=== PATIENT | male | born 1970 | race Caucasian/White ===

== ENCOUNTER 2017-02-24 10:04 | Inpatient (IN) ==
[2017-02-24] MEDS ORDERED: 0.9 % Sodium Chloride 1,000 ML IVC ONE (10:11)
--- NOTE | 2017-02-24 10:16 | Emergency Department Note ---
Disposition Clinical Impression: Cirrhosis of liver Qualifiers: Hepatic cirrhosis type: unspecified biliary cirrhosis Qualified Code(s): K74.5 - Biliary cirrhosis, unspecified Syncope Qualifiers: Syncope type: unspecified Qualified Code(s): R55 - Syncope and collapse Altered mental status Qualifiers: Altered mental status type: delirium Qualified Code(s): R41.0 - Disorientation , unspecified Disposition: Admitted As Inpatient Condition: Fair General Adult HPI - General Chief complaint: ED Fall Stated complaint: fall Time Seen by Provider: 02/24/17 10:06 Nursing Notes Reviewed: Yes Vital Signs Reviewed: Yes - History of Present Illness HPI Narrative: Chief complaint is altered mental status. History this is a 47-year-old gentleman who was at home. Has a history of cirrhosis and altered mental status with hyperammonemia. Medics were the only one by mouth to give us any history this family was poor historian and patient' s altered. Give history. They also said he was found down on the ground by family. He was incontinent of urine and stool. Does have a Coleman catheter in but that is leaking. He was nauseous so they gave him Zofran and now he is doing better with that. He denies any pain at this time. He is agitated. He is he is alert to person he knows is in the hospital he does know the time and date. Past medical history reviewed and is limited list is reviewed and is limited and allergies he says only to milk products. - Related Data Home Medications Medication Instructions Recorded Confirmed Gabapentin [Neurontin] 100 mg PO TID 12/22/15 02/24/17 Potassium Chloride [K-Tab ER] 20 meq PO DAILY 12/22/15 02/24/17 TraZODone 50 mg PO HS PRN 12/22/15 02/24/17 Ergocalciferol (VITAMIN D2) 50,000 units PO QWEEK 04/17/16 02/24/17 [Vitamin D2 (50,000 UNIT)] Lactulose [Enulose] 45 ml PO BID 04/17/16 02/24/17 Omeprazole [PriLOSEC] 20 mg PO BID 04/17/16 02/24/17 Tizanidine HCl [Zanaflex] 2 mg PO HS PRN 04/17/16 02/24/17 Eplerenone [Inspra] 50 mg PO BID 02/24/17 02/24/17 Escitalopram [Lexapro] 10 mg PO DAILY 02/24/17 02/24/17 Furosemide [Lasix] 40 mg PO DAILY 02/24/17 02/24/17 Promethazine [Phenergan] 25 mg PO Q6HR PRN 02/24/17 02/24/17 Previous Rx's Medication Instructions Recorded Bumetanide [Bumex] 1 mg PO DAILY #7 tablet 01/04/17 Allergies Allergy/AdvReac Type Severity Reaction Status Date / Time milk Allergy Swelling Verified 01/09/17 20:32 of Lip/Tongue/Throat Milk Containing Products Allergy Swelling Verified 01/09/17 20:32 of Lip/Tongue/Throat Review of Systems: His systems are positive for altered mental status. Nausea resolved this is limited due to the patient's altered mental status. Limitations: ROS unobtainable due to patients medical condition Past Medical History - Past Medical History Medical history: Reports: cirrhosis, GERD, liver disease, renal disease, other Surgical history: Reports: no surgical history Psychiatric history: Reports: no psych history - Social History Smoking Status: Never smoker Smokeless Tobacco Status: Yes (SMOKELESS TOBACCO) Alcohol use: Reports: none Drug use: Reports: none Physical Exam Gen. patient is disheveled, smells of feces and urine. Is nontoxic in appearance however. He is alert to person and he notices in the hospital but not to time Temperature is 99.2, pulse is 111, respirations 20, BP 206/100, pulse ox is 97% . He was 132 kg. HEENT he has no scleral icterus. Mucous membranes are dry, neck is supple no nodes no signs of trauma TMs nares are negative. Cardiovascular tachycardic but regular without rubs or JVD lungs are clear to auscultation bilaterally with good aeration abdomen is soft nondistended. Bowel sounds no masses. He does have liquid stool in his pants. No signs of blood. He does have ascites. Extremities are present 4 no signs of trauma. He has some edema in his lower extremities. No signs of cellulitis. Dermatologic he is not jaundiced. He has no abnormal bruising. No acute rashes or petechiae. Neurologic is very limited GCS is 14. Moves all extremities. Noncooperative for focal neuro exam. Course Vital Signs Temperature 99.2 F 02/24/17 10:06 Pulse Rate 111 02/24/17 10:06 Respiratory Rate 20 02/24/17 10:06 Blood Pressure 206/100 02/24/17 10:06 O2 Sat by Pulse Oximetry 97 02/24/17 10:06 Temperature 99.2 F 02/24/17 10:06 Pulse Rate 106 02/24/17 12:29 Respiratory Rate 20 02/24/17 13:04 Blood Pressure 194/90 02/24/17 13:04 O2 Sat by Pulse Oximetry 97 02/24/17 12:29 Oxygen Delivery Oxygen Delivery Room Air Medical Decision Making - MDM Narrative Medical decision making narrative: Injury a CT of his head to rule out any intracranial abnormality. Check cultures and lab work. Rule out sepsis hyperammonemia and other causes. He will need admission. Also see professor of social work can get in touch with family and determine what health care needs are needed at home. 1017 hrs.: Patient had an EKG performed which shows a sinus tachycardia, the rate is 104, irregular EKG due to movement, QRS is 104 QTC is 4:30, nonspecific changes in ST segments but nothing that appears to be acute ischemia. Compared this to an EKG he had done in April of last year shows no changes except for rate. 1100 hrs.: Patient's labs are coming back and are significant with his elevation of the CK probably from lying on the floor. However his BUN/ creatinine is not elevated. He does have an elevated troponin but denies any chest pain. His LFTs are elevated consistent with his liver disease. Waiting on a CT. We will give him a dose of aspirin also. Hydration for his elevated CK. Given a tray given a dose of lactulose here. And then admission. Chest X-Ray 02/24/17 10:08 IMPRESSION: Mild pulmonary vascular congestion without overt pulmonary edema. D/ / 02/24/2017 10:33:32 Magdy Pinon MD / [facility] Interpreting Provider: Magdy Pinon MD Head CT 02/24/17 10:08 IMPRESSION: Motion artifact degrades exam. No definite acute intracranial abnormality. D/ / Richard Clark MD / Richard Clark MD Interpreting Provider: Richard Clark MD 1146 hrs. CTs back and negative. Regarding and bring him into the hospital impression is acute mental status change, history of this of cirrhosis uncertain etiology. Elevated CK from fall. 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 He does walk with a walker now. Lives alone and no one is really others take care of him so we will involve professor of social work without also. They said this is the worst they have actually seen him. Patient's critical care time is excluding any separately billable procedures is 40 minutes. 1210 hrs.: Spoke with the hospitalist they have excepted we will start him on Zosyn also I will order a second lactate on him and second bolus of fluids. I thought he should probably go to [address] [place] [address] hospitalist agrees. We know that he does have UTI that could be chronic. But we will rule out sepsis also. He has he does have Sirs criteria. 1214 hrs.: Patient has second EKG for comparison shows a sinus tachycardia, rate 107, QRS is 97, QT 404, no signs of ischemia still has the nonspecific T- wave changes compared that to his old EKGs. - Lab Data Result diagrams: 02/24/17 10:29 02/24/17 10:29 Lab Results 02/24/17 02/24/17 02/24/17 Range/Units 10:29 10:29 10:29 WBC 5.8 (4.3-11.1) K/mcL RBC 4.47 (4.19-5.50) M/mcL Hgb 12.8 L (12.9-16.9) g/dL Hct 37.5 (37.5-50.1) % MCV 83.9 (83.0-100.0) fL MCH 28.6 (28.0-33.3) pg MCHC 34.1 (31.6-35.5) g/dL RDW 14.6 H (11.5-14.5) % Plt Count 52 L (140-400) K/mcL MPV 11.0 (9.4-12.4) fL Immature Gran % 0.3 (0-4) % Seg Neutrophils % 88.8 % Lymphocytes % 5.0 % Monocytes % 5.5 % Eosinophils % 0.2 % Basophils % 0.2 % Neutrophils # 5.2 (1.6-8.9) K/mcL Lymphocytes # 0.3 L (0.6-4.6) K/mcL Monocytes # 0.3 (0.0-1.3) K/mcL Eosinophils # 0.0 (0.0-0.6) K/mcL Basophils # 0.0 (0.0-0.2) K/mcL PT 14.5 H (9.4-12.1) Seconds INR 1.3 APTT 29.5 (26.0-36.0) Seconds Sodium 144 (136-145) mEq/L Potassium 4.1 (3.5-4.5) mEq/L Chloride 109 (98-109) mEq/L Carbon Dioxide 24 (19-29) mEq/L BUN 14 (8-26) mg/dL Creatinine 0.89 (0.72-1.25) mg/dL Est GFR ( Amer) > 60 (> 60) Est GFR (Non-Af Amer) > 60 (> 60) BUN/Creatinine Ratio 16 (6-26) Glucose 135 H (70-99) mg/dL Calculated Osmolality 301 H (280-300) Lactic Acid (0.5-2.2) mmol/L Calcium 9.3 (8.6-10.8) mg/dL Phosphorus (2.3-4.7) mg/dL Magnesium (1.6-2.6) mg/dL Total Bilirubin 2.3 H (0.2-1.2) mg/dL AST 57 H (5-34) Units/L ALT 27 (0-55) Units/L Alkaline Phosphatase 89 (38-126) Units/L Ammonia (18-72) mcmol/L Creatine Kinase (30-200) Units/L Troponin I (0-0.03) ng/mL B-Natriuretic Peptide (0-100) pg/mL Serum Total Protein 7.5 (6.0-8.3) g/dL Albumin 3.7 (3.5-5.0) g/dL Globulin 3.8 H (2.4-3.5) g/dL Albumin/Globulin Ratio 1.0 L (1.1-2.2) Urine Color (Yellow) Urine Clarity (Clear) Urine pH (5.0-8.0) pH Units Ur Specific Wanda (1.010-1.025) Urine Protein (Neg-Trace) mg/dL Urine Glucose (UA) (Normal) mg/dL Urine Ketones (Negative) mg/dL Urine Blood (Negative) Urine Nitrite (Negative) Urine Bilirubin (Negative) Urine Urobilinogen (Normal) mg/dL Ur Leukocyte Esterase (Negative) Urine Microscopic RBC (0-3) per hpf Urine Microscopic WBC (0-3) per hpf Ur Squamous Epith Cells (None-Few) per lpf Urine Bacteria (None-Few) per hpf Hyaline Casts (None-Few) per lpf Ur Culture Indicated? (NO) Acetaminophen < 1.0 L (10-30) mcg/mL Ethyl Alcohol < 10 (0-10) mg/dL 02/24/17 02/24/17 02/24/17 Range/Units 10:29 10:29 10:29 WBC (4.3-11.1) K/mcL RBC (4.19-5.50) M/mcL Hgb (12.9-16.9) g/dL Hct (37.5-50.1) % MCV (83.0-100.0) fL MCH (28.0-33.3) pg MCHC (31.6-35.5) g/dL RDW (11.5-14.5) % Plt Count (140-400) K/mcL MPV (9.4-12.4) fL Immature Gran % (0-4) % Seg Neutrophils % % Lymphocytes % % Monocytes % % Eosinophils % % Basophils % % Neutrophils # (1.6-8.9) K/mcL Lymphocytes # (0.6-4.6) K/mcL Monocytes # (0.0-1.3) K/mcL Eosinophils # (0.0-0.6) K/mcL Basophils # (0.0-0.2) K/mcL PT (9.4-12.1) Seconds INR APTT (26.0-36.0) Seconds Sodium (136-145) mEq/L Potassium (3.5-4.5) mEq/L Chloride (98-109) mEq/L Carbon Dioxide (19-29) mEq/L BUN (8-26) mg/dL Creatinine (0.72-1.25) mg/dL Est GFR ( Amer) (> 60) Est GFR (Non-Af Amer) (> 60) BUN/Creatinine Ratio (6-26) Glucose (70-99) mg/dL Calculated Osmolality (280-300) Lactic Acid 3.5 H (0.5-2.2) mmol/L Calcium (8.6-10.8) mg/dL Phosphorus (2.3-4.7) mg/dL Magnesium (1.6-2.6) mg/dL Total Bilirubin (0.2-1.2) mg/dL AST (5-34) Units/L ALT (0-55) Units/L Alkaline Phosphatase (38-126) Units/L Ammonia 75 H (18-72) mcmol/L Creatine Kinase (30-200) Units/L Troponin I (0-0.03) ng/mL B-Natriuretic Peptide 132 H (0-100) pg/mL Serum Total Protein (6.0-8.3) g/dL Albumin (3.5-5.0) g/dL Globulin (2.4-3.5) g/dL Albumin/Globulin Ratio (1.1-2.2) Urine Color (Yellow) Urine Clarity (Clear) Urine pH (5.0-8.0) pH Units Ur Specific Wanda (1.010-1.025) Urine Protein (Neg-Trace) mg/dL Urine Glucose (UA) (Normal) mg/dL Urine Ketones (Negative) mg/dL Urine Blood (Negative) Urine Nitrite (Negative) Urine Bilirubin (Negative) Urine Urobilinogen (Normal) mg/dL Ur Leukocyte Esterase (Negative) Urine Microscopic RBC (0-3) per hpf Urine Microscopic WBC (0-3) per hpf Ur Squamous Epith Cells (None-Few) per lpf Urine Bacteria (None-Few) per hpf Hyaline Casts (None-Few) per lpf Ur Culture Indicated? (NO) Acetaminophen (10-30) mcg/mL Ethyl Alcohol (0-10) mg/dL 02/24/17 02/24/17 02/24/17 Range/Units 10:29 10:29 11:40 WBC (4.3-11.1) K/mcL RBC (4.19-5.50) M/mcL Hgb (12.9-16.9) g/dL Hct (37.5-50.1) % MCV (83.0-100.0) fL MCH (28.0-33.3) pg MCHC (31.6-35.5) g/dL RDW (11.5-14.5) % Plt Count (140-400) K/mcL MPV (9.4-12.4) fL Immature Gran % (0-4) % Seg Neutrophils % % Lymphocytes % % Monocytes % % Eosinophils % % Basophils % % Neutrophils # (1.6-8.9) K/mcL Lymphocytes # (0.6-4.6) K/mcL Monocytes # (0.0-1.3) K/mcL Eosinophils # (0.0-0.6) K/mcL Basophils # (0.0-0.2) K/mcL PT (9.4-12.1) Seconds INR APTT (26.0-36.0) Seconds Sodium (136-145) mEq/L Potassium (3.5-4.5) mEq/L Chloride (98-109) mEq/L Carbon Dioxide (19-29) mEq/L BUN (8-26) mg/dL Creatinine (0.72-1.25) mg/dL Est GFR ( Amer) (> 60) Est GFR (Non-Af Amer) (> 60) BUN/Creatinine Ratio (6-26) Glucose (70-99) mg/dL Calculated Osmolality (280-300) Lactic Acid (0.5-2.2) mmol/L Calcium (8.6-10.8) mg/dL Phosphorus (2.3-4.7) mg/dL Magnesium (1.6-2.6) mg/dL Total Bilirubin (0.2-1.2) mg/dL AST (5-34) Units/L ALT (0-55) Units/L Alkaline Phosphatase (38-126) Units/L Ammonia (18-72) mcmol/L Creatine Kinase 1589 H (30-200) Units/L Troponin I 0.09 H* (0-0.03) ng/mL B-Natriuretic Peptide (0-100) pg/mL Serum Total Protein (6.0-8.3) g/dL Albumin (3.5-5.0) g/dL Globulin (2.4-3.5) g/dL Albumin/Globulin Ratio (1.1-2.2) Urine Color Yellow (Yellow) Urine Clarity Cloudy A (Clear) Urine pH 5.5 (5.0-8.0) pH Units Ur Specific Wanda 1.023 (1.010-1.025) Urine Protein 30 H (Neg-Trace) mg/dL Urine Glucose (UA) Normal (Normal) mg/dL Urine Ketones Negative (Negative) mg/dL Urine Blood Large H (Negative) Urine Nitrite Positive A (Negative) Urine Bilirubin Negative (Negative) Urine Urobilinogen Normal (Normal) mg/dL Ur Leukocyte Esterase Small H (Negative) Urine Microscopic RBC TNTC H (0-3) per hpf Urine Microscopic WBC 15-30 H (0-3) per hpf Ur Squamous Epith Cells Few (None-Few) per lpf Urine Bacteria Moderate H (None-Few) per hpf Hyaline Casts None Seen (None-Few) per lpf Ur Culture Indicated? YES A (NO) Acetaminophen (10-30) mcg/mL Ethyl Alcohol (0-10) mg/dL 02/24/17 02/24/17 Range/Units 12:41 12:41 WBC (4.3-11.1) K/mcL RBC (4.19-5.50) M/mcL Hgb (12.9-16.9) g/dL Hct (37.5-50.1) % MCV (83.0-100.0) fL MCH (28.0-33.3) pg MCHC (31.6-35.5) g/dL RDW (11.5-14.5) % Plt Count (140-400) K/mcL MPV (9.4-12.4) fL Immature Gran % (0-4) % Seg Neutrophils % % Lymphocytes % % Monocytes % % Eosinophils % % Basophils % % Neutrophils # (1.6-8.9) K/mcL Lymphocytes # (0.6-4.6) K/mcL Monocytes # (0.0-1.3) K/mcL Eosinophils # (0.0-0.6) K/mcL Basophils # (0.0-0.2) K/mcL PT (9.4-12.1) Seconds INR APTT (26.0-36.0) Seconds Sodium (136-145) mEq/L Potassium (3.5-4.5) mEq/L Chloride (98-109) mEq/L Carbon Dioxide (19-29) mEq/L BUN (8-26) mg/dL Creatinine (0.72-1.25) mg/dL Est GFR ( Amer) (> 60) Est GFR (Non-Af Amer) (> 60) BUN/Creatinine Ratio (6-26) Glucose (70-99) mg/dL Calculated Osmolality (280-300) Lactic Acid 3.4 H (0.5-2.2) mmol/L Calcium (8.6-10.8) mg/dL Phosphorus 3.6 (2.3-4.7) mg/dL Magnesium 1.5 L (1.6-2.6) mg/dL Total Bilirubin (0.2-1.2) mg/dL AST (5-34) Units/L ALT (0-55) Units/L Alkaline Phosphatase (38-126) Units/L Ammonia (18-72) mcmol/L Creatine Kinase (30-200) Units/L Troponin I (0-0.03) ng/mL B-Natriuretic Peptide (0-100) pg/mL Serum Total Protein (6.0-8.3) g/dL Albumin (3.5-5.0) g/dL Globulin (2.4-3.5) g/dL Albumin/Globulin Ratio (1.1-2.2) Urine Color (Yellow) Urine Clarity (Clear) Urine pH (5.0-8.0) pH Units Ur Specific Wanda (1.010-1.025) Urine Protein (Neg-Trace) mg/dL Urine Glucose (UA) (Normal) mg/dL Urine Ketones (Negative) mg/dL Urine Blood (Negative) Urine Nitrite (Negative) Urine Bilirubin (Negative) Urine Urobilinogen (Normal) mg/dL Ur Leukocyte Esterase (Negative) Urine Microscopic RBC (0-3) per hpf Urine Microscopic WBC (0-3) per hpf Ur Squamous Epith Cells (None-Few) per lpf Urine Bacteria (None-Few) per hpf Hyaline Casts (None-Few) per lpf Ur Culture Indicated? (NO) Acetaminophen (10-30) mcg/mL Ethyl Alcohol (0-10) mg/dL
[2017-02-24] MEDS ORDERED: Ondansetron 4 MG/2 ML VIAL IVP ONE (10:31)
[2017-02-24] MEDS ORDERED: *HR* LORazepam 2 MG/ML VIAL IVP ONE (10:31)
[2017-02-24 10:40] LABS: Basophils % 0.2 %; Eosinophils % 0.2 %; Hematocrit 37.5 % (37.5-50.1); Hemoglobin 12.8 g/dL (12.9-16.9); Immature Granulocytes % 0.3 % (0-4); Lymphocytes # 0.3 K/mcL (0.6-4.6); Mean Corpuscular HGB Conc 34.1 g/dL (31.6-35.5); Mean Corpuscular Hemoglobin 28.6 pg (28.0-33.3); Mean Corpuscular Volume 83.9 fL (83.0-100.0); Monocytes # 0.3 K/mcL (0.0-1.3); Monocytes % 5.5 %; Neutrophils # 5.2 K/mcL (1.6-8.9); Platelet Count 52 K/mcL (140-400); Red Blood Count 4.47 M/mcL (4.19-5.50); Red Cell Distribution Width 14.6 % (11.5-14.5); Segmented Neutrophils % 88.8 %
[2017-02-24 10:45] LABS: INR 1.3; Prothrombin Time 14.5 Seconds (9.4-12.1)
[2017-02-24 10:48] LABS: Activated Partial Thrombo Time 29.5 Seconds (26.0-36.0)
[2017-02-24 10:57] LABS: Alanine Aminotransferase 27 Units/L (0-55); Albumin 3.7 g/dL (3.5-5.0); Alkaline Phosphatase 89 Units/L (38-126); Aspartate Amino Transferase 57 Units/L (5-34); BUN/Creatinine Ratio 16 (6-26); Bilirubin,Total 2.3 mg/dL (0.2-1.2); Blood Urea Nitrogen 14 mg/dL (8-26); Calcium 9.3 mg/dL (8.6-10.8); Carbon Dioxide 24 mEq/L (19-29); Chloride 109 mEq/L (98-109); Globulin 3.8 g/dL (2.4-3.5); Glucose 135 mg/dL (70-99); Osmolality,Calculated 301 (280-300); Potassium 4.1 mEq/L (3.5-4.5); Sodium 144 mEq/L (136-145); Total Protein 7.5 g/dL (6.0-8.3); eGFR For African Americans > 60 (> 60); eGFR For Non-African Americans > 60 (> 60)
[2017-02-24 10:59] LABS: Acetaminophen < 1.0 mcg/mL (10-30); Ethanol < 10 mg/dL (0-10)
[2017-02-24] MEDS ORDERED: Aspirin 81 MG TAB.CHEW PO STA (11:06)
[2017-02-24] MEDS ORDERED: Lactulose Oral Soln 20 GM/30 ML UDC PO ONE (11:08)
[2017-02-24 11:49] LABS: Bilirubin,Urine Negative (Negative); Blood,Urine Large (Negative); Clarity,Urine Cloudy (Clear); Color,Urine Yellow (Yellow); Glucose,Urine (UA) Normal (Normal); Ketones,Urine Negative (Negative); Leukocyte Esterase,Urine Small (Negative); Nitrite,Urine Positive (Negative); PH,Urine 5.5 pH Units (5.0-8.0); Protein,Urine 30 mg/dL (Neg-Trace); Specific Gravity,Urine 1.023 (1.010-1.025); Urobilinogen,Urine Normal (Normal)
[2017-02-24 11:52] LABS: Bacteria,Urine Moderate per hpf (None-Few); Hyaline Casts,Urine None Seen per lpf (None-Few); RBC,Urine TNTC per hpf (0-3); Squamous Epithelial Cell,Urine Few per lpf (None-Few); WBC,Urine 15-30 per hpf (0-3)
[2017-02-24] MEDS ORDERED: Piperacillin/Tazobactam 3.375 GM in D5% in Water (Mini-Bag+) 100 ML IVPB ONE (12:08)
[2017-02-24] MEDS: 0.9 % Sodium Chloride 1,000 ML IVC SCH ×3 (12:29→16:16)
[2017-02-24] MEDS ORDERED: Naloxone 0.4 MG/ML INJ IVP PRN (12:44)
[2017-02-24] MEDS ORDERED: Ondansetron 4 MG/2 ML VIAL IVP PRN (12:44)
[2017-02-24 13:08] LABS: Magnesium 1.5 mg/dL (1.6-2.6); Phosphorous 3.6 mg/dL (2.3-4.7)
[2017-02-24] MEDS ORDERED: Furosemide 40 MG/4 ML VIAL IVP SCH (13:15)
--- NOTE | 2017-02-24 13:29 | Internal Med History&Physical ---
Date of Encounter: 02/24/17 Time of Encounter: 12:30 Assessment and Plan (1) Sepsis Current visit: Yes Status: Acute Patient has acute mental status change, tachycardia, significantly elevated lactate level. History of urosepsis. We will treat patient as sepsis. - previous urine culture result reviewed. Will place pt on vanco and zosyn now. F/U blood and urine cx. - IVF, follow up lactate level. - Closely monitor vitals in tele. Qualifiers: Sepsis type: sepsis due to unspecified organism Qualified Code(s): A41.9 - Sepsis, unspecified organism (2) Acute encephalopathy Current visit: No Status: Resolved Possibly due to sepsis/UTI and dehydration. Pt has cirrhosis with elevated ammonia level but ammonia is only 75, less likely hepatoencephalopathy. - Will cont abx and IVF for UTI/sepsis. - Increase lactulose dose to 45ml tid. F/U ammonia level. 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 Will residuel paraplegia and need chronic Coleman. Will continue current care and PT/OT. (4) Cirrhosis of liver Current visit: Yes Status: Chronic Chronic. Cont closely monitoring Qualifiers: Hepatic cirrhosis type: unspecified biliary cirrhosis Qualified Code(s): K74.5 - Biliary cirrhosis, unspecified (5) DVT prophylaxis Current visit: Yes Status: Acute EPCD. No heparin because of thrombocytopenia. (6) Rhabdomyolysis Current visit: Yes Status: Acute Patient has elevated CK level. Do not know how long he laid on the floor. Will continue hydration. Close follow up renal function and CK level. Qualifiers: Rhabdomyolysis type: non-traumatic Qualified Code(s): M62.82 - Rhabdomyolysis (7) Elevated troponin Current visit: Yes Status: Acute Mild elevated troponin with Sepsis and rhabdomyolysis condition. Patient denies chest pain or shortness of breath. EKG shows no significant ST-T changes. Consider demand ischemia. However, we will trend 3 sets of troponin. Keep cardiac monitoring. (8) Hypertension Current visit: Yes Status: Acute Patient has high blood pressure to 190 in emergency room. Due to stress? Or not taking by mouth medication? - Place hydralazine IV when necessary. - Switch Lasix from by mouth to IV. - Closely monitor blood pressure. Qualifiers: Hypertension type: essential hypertension Qualified Code(s): I10 - Essential (primary) hypertension Internal Medicine - H&P: HPI Chief complaint: Altered mental status Admitted From: Home Plans for Post Hospital Care: Transfer Assisted Facility History of present illness: Mr. Lomax is a 47 year old male with history of cirrhosis, bilateral leg weakness due to previous spinal abscess surgery brought in by EMS for altered mental status. When I saw patient, he can be waken up but still very drowsy, cannot answer questions properly. History obtained from previous chart and ER documentation. Patient has chronic Coleman catheter and previous hospitalization for UTI. Patient lives alone. He was found laying on the floor nonresponsive by family member. Not sure how long he being there. He was found urinary and fecal incontinence. Patient brought to ER and was given hydration with IV fluid. His mental status has slightly improved. Patient was found CK level is high. He also has a high level of lactate with UTI in urinalysis. Patient admitted for further management. Cannot discuss with patient regarding CODE STATUS. I place full code for this patient at this point, according to previous chart records. Past Med Surg Social Fam HX - Past Medical History Medical history: cirrhosis, GERD, liver disease, renal disease, other Psychiatric history: no psych history - Past Surgical History Surgical History: no surgical history - Social History Smoking Status: Never smoker Smokeless Tobacco Status: Yes (SMOKELESS TOBACCO) Alcohol use: none Drug use: none - Family History Mother Adopted: No Living Status: Hx Family Endocrine Disorder: Yes (Diabetic) Sister Adopted: No Living Status: Hx Family Endocrine Disorder: Yes (Diabetic) Internal Medicine - H&P: Meds Gabapentin [Neurontin] 100 mg PO TID 12/22/15 [History] Potassium Chloride [K-Tab ER] 20 meq PO DAILY 12/22/15 [History] TraZODone 50 mg PO HS PRN 12/22/15 [History] Ergocalciferol (VITAMIN D2) [Vitamin D2 (50,000 UNIT)] 50,000 units PO QWEEK 03/25 [History] Lactulose [Enulose] 45 ml PO BID 04/17/16 [History] Omeprazole [PriLOSEC] 20 mg PO BID 04/17/16 [History] Tizanidine HCl [Zanaflex] 2 mg PO HS PRN 04/17/16 [History] Bumetanide [Bumex] 1 mg PO DAILY #7 tablet 01/04/17 [Rx] Eplerenone [Inspra] 50 mg PO BID 02/24/17 [History] Escitalopram [Lexapro] 10 mg PO DAILY 02/24/17 [History] Furosemide [Lasix] 40 mg PO DAILY 02/24/17 [History] Promethazine [Phenergan] 25 mg PO Q6HR PRN 02/24/17 [History] 3 Allergy/AdvReac Type Severity Reaction Status Date / Time milk Allergy Swelling Verified 01/09/17 20:32 of Lip/Tongue/Throat Milk Containing Products Allergy Swelling Verified 01/09/17 20:32 of Lip/Tongue/Throat All Systems PM: A 10-system review of systems was performed and is negative for pertinent findings except as documented above in the HPI. - Constitutional Vitals: Temp Pulse Resp BP Pulse Ox 99.2 F 106 20 194/90 97 02/24/17 10:06 02/24/17 12:29 02/24/17 13:04 02/24/17 13:04 02/24/17 12:29 General appearance: Present: A&O X 1, no acute distress - Head Head exam: Present: atraumatic, normocephalic - Eye Eye exam: Present: PERRL, conjuntiva pink, sclera anicteric Pupils: Present: PERRL - Neck Neck exam general surgery: Present: supple, trachea midline. Absent: lymphadenopathy - Respiratory Respiratory exam: Present: CTAB. Absent: accessory muscle use, rales, rhonchi, wheezes - Cardiovascular Cardiovascular exam: Present: RRR, +S1, +S2. Absent: diastolic murmur, gallop, rubs, systolic murmur - GI/Abdominal GI/Abdominal exam: Present: normal bowel sounds, soft, no peritoneal signs. Absent: distended, tenderness - Extremities Exam Extremities exam: Present: pedal edema (Mild pedal edema bilaterally), warm, radial pulses palpable and symmetrical. Absent: calf tenderness, cyanotic - Neurological Exam Neurological exam: Present: CN II-XII intact, oriented X3, no focal deficits. Absent: pronater drift, facial droop, speech deficit - Skin Skin exam: Present: dry, intact Internal Med - H&P Results - Labs CBC & Chem 7: 02/24/17 10:29 02/24/17 10:29 - EKG Data -: EKG Interpreted by Myself EKG shows normal: sinus rhythm Rate: tachycardia
[2017-02-24] MEDS ORDERED: Vancomycin 2,000 MG in D5% in Water 250 ML IVPB SCH (14:00)
[2017-02-24] MEDS: Furosemide 40 MG/4 ML VIAL IVP SCH (14:50)
[2017-02-24] MEDS: Lactulose Oral Soln 20 GM/30 ML UDC PO SCH ×2 (16:17→20:23)
[2017-02-24] MEDS: Vancomycin 2,000 MG in D5% in Water 500 ML IVPB SCH (16:18)
--- NOTE | 2017-02-24 17:07 | Electrocardiograph Report ---
[address] [address] Test Date: 2017-02-24 Pat Name: Percy Lomax Department: 0 Room: 2N10 Gender: M Front Elevator Operator: : 1970 Requested By: Chet Thapa Order Number: [id number] Reading MD: Beverly Hale Measurements Intervals [place] Rate: 107 P: 58 NV: 154 QRS: 13 QRSD: 97 T: 66 QT: 341 QTc: 404 Interpretive Statements SINUS TACHYCARDIA NONSPECIFIC ST & T-WAVE ABNORMALITY ABNORMAL RHYTHM ECG Electronically Signed On 02-24-2017 17:05:06 EDT by Beverly Hale
[2017-02-24] MEDS ORDERED: *HR* Promethazine 25 MG/ML VIAL IVP PRN (20:26)
[2017-02-24] MEDS ORDERED: EPLERENONE 50 MG PO SCH (21:00)
--- NOTE | 2017-02-24 21:42 | Event Note ---
Date of Encounter: 02/24/17 Time of Encounter: 21:40 Patient remains altered. Being treated for urosepsis with abx and hyperammonemia with lactulose. Patient has been pulling out IVs and catheter. When speaking to him, he is anxious, confused, agitated. Will start precedex to prevent treatment disruption and to help with agitation.
[2017-02-24] MEDS ORDERED: Dexmedetomidine HCl 400 MCG/100 ML MLS IVC ONE (22:04)
[2017-02-24] MEDS: Dexmedetomidine HCl 400 MCG/100 ML MLS IVC SCH (22:18)
[2017-02-25] MEDS: Vancomycin 2,000 MG in D5% in Water 500 ML IVPB SCH (02:55)
[2017-02-25] MEDS: 0.9 % Sodium Chloride 1,000 ML IVC SCH ×3 (05:13→14:51)
[2017-02-25 05:17] LABS: Basophils % 0.3 %; Eosinophils % 0.6 %; Hematocrit 32.5 % (37.5-50.1); Immature Granulocytes % 0.3 % (0-4); Immature Platelets 2.3 % (1.1-6.1); Lymphocytes # 0.6 K/mcL (0.6-4.6); Lymphocytes % 16.8 %; Mean Corpuscular HGB Conc 33.5 g/dL (31.6-35.5); Mean Corpuscular Hemoglobin 28.9 pg (28.0-33.3); Mean Corpuscular Volume 86.2 fL (83.0-100.0); Mean Platelet Volume 10.6 fL (9.4-12.4); Monocytes # 0.3 K/mcL (0.0-1.3); Monocytes % 8.4 %; Red Blood Count 3.77 M/mcL (4.19-5.50); Red Cell Distribution Width 15.3 % (11.5-14.5); Segmented Neutrophils % 73.6 %
[2017-02-25 05:21] LABS: Neutrophils # 2.4 K/mcL (1.6-8.9)
[2017-02-25 05:22] LABS: Hemoglobin 10.9 g/dL (12.9-16.9); Platelet Count 40 K/mcL (140-400)
[2017-02-25 05:23] LABS: INR 1.5; Prothrombin Time 15.9 Seconds (9.4-12.1)
[2017-02-25 05:30] LABS: Alanine Aminotransferase 22 Units/L (0-55); Albumin/Globulin Ratio 0.9 (1.1-2.2); Alkaline Phosphatase 67 Units/L (38-126); Aspartate Amino Transferase 61 Units/L (5-34); BUN/Creatinine Ratio 14 (6-26); Bilirubin,Total 2.4 mg/dL (0.2-1.2); Blood Urea Nitrogen 14 mg/dL (8-26); Calcium 8.3 mg/dL (8.6-10.8); Carbon Dioxide 26 mEq/L (19-29); Chloride 108 mEq/L (98-109); Globulin 3.1 g/dL (2.4-3.5); Glucose 166 mg/dL (70-99); Osmolality,Calculated 292 (280-300); Potassium 3.7 mEq/L (3.5-4.5); Sodium 139 mEq/L (136-145); eGFR For African Americans > 60 (> 60); eGFR For Non-African Americans > 60 (> 60)
[2017-02-25 05:31] LABS: Albumin 2.8 g/dL (3.5-5.0); Total Protein 5.9 g/dL (6.0-8.3)
[2017-02-25] MEDS: Spironolactone 25 MG TABLET PO SCH (08:30)
[2017-02-25] MEDS: Furosemide 40 MG/4 ML VIAL IVP SCH (08:31)
[2017-02-25] MEDS: traZODone 50 MG TABLET PO PRN ×2 (08:31→20:15)
[2017-02-25] MEDS: Aspirin 81 MG TAB.CHEW PO SCH (08:31)
[2017-02-25] MEDS: Lactulose Oral Soln 20 GM/30 ML UDC PO SCH ×3 (08:31→20:14)
[2017-02-25] MEDS: Pantoprazole 40 MG VIAL IVP SCH (08:32)
--- NOTE | 2017-02-25 12:16 | Internal Med Progress Note ---
Date of Encounter: 02/25/17 Time of Encounter: 09:40 - Assessment and plan (1) Sepsis Current Visit: Yes Status: Acute Assessment and plan: Sepsis present on admission - secondary to UTI, likely gram-negative bacilli, probably due to chronic indwelling Coleman catheter Continue IV Rocephin, IV Zyvox (VRE and ESBL in the past), continue IV fluids Cultures - pending Lactic acid - 1.6 WBC - 3.3 CT head - no acute intracranial abnormality Chest x-ray - mild pulmonary vascular congestion without overt pulmonary edema, otherwise negative Cardiac telemetry, monitor closely Qualifiers: Sepsis type: sepsis due to unspecified organism Qualified Code(s): A41.9 - Sepsis, unspecified organism (2) Acute encephalopathy Current Visit: No Status: Acute Assessment and plan: Acute encephalopathy secondary to sepsis due to UTI - now resolved Continue IV antibiotics, IV fluids and lactulose Unlikely to be hepatic encephalopathy as ammonia is 59 (3) Rhabdomyolysis Current Visit: Yes Status: Acute Assessment and plan: Elevated CK level - unclear as to how long the patient was unresponsive on the floor Continue IV fluids, monitor renal function Repeat CK level and labs in a.m. Qualifiers: Rhabdomyolysis type: non-traumatic Qualified Code(s): M62.82 - Rhabdomyolysis (4) Elevated troponin Current Visit: Yes Status: Acute Assessment and plan: Troponin peak is 0.56, trending down - probably due to sepsis and rhabdomyolysis - no anginal symptoms, unlikely to be ACS EKG - sinus tachycardia with no acute ST-T changes BN peptide - 132 Echocardiogram - Pending Continue aspirin, cardiac telemetry (5) Thrombocytopenia Current Visit: Yes Status: Chronic Assessment and plan: Chronic Thrombocytopenia - secondary to cirrhosis of liver No active bleeding, avoid anticoagulants at this time Monitor closely, transfuse platelets if any bleeding develops (6) Cirrhosis of liver Current Visit: Yes Status: Chronic Assessment and plan: Chronic cirrhosis of liver - unclear etiology - probably SUH Causing pancytopenia Qualifiers: Hepatic cirrhosis type: unspecified biliary cirrhosis Qualified Code(s): K74.5 - Biliary cirrhosis, unspecified (7) Paraplegia Current Visit: No Status: Chronic Assessment and plan: 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 and requires chronic indwelling Coleman catheter PT and OT evaluation (8) DVT (deep venous thrombosis) Current Visit: No Status: Chronic Assessment and plan: History of right upper extremity DVT in the past Patient states he does not take Coumadin anymore Qualifiers: DVT location: upper extremity Affected thrombotic vein of extremity: unspecified vein of extremity Chronicity: acute Laterality: right Qualified Code(s): I82.621 - Acute embolism and thrombosis of deep veins of right upper extremity (9) DVT prophylaxis Current Visit: Yes Status: Acute Assessment and plan: Continue SCDs, avoid anticoagulants due to thrombocytopenia - Time Spent With Patient 25 - 35 minutes - Subjective Interval history: Examined this morning. Patient is awake and alert. Not in any distress. Denies chest pain or shortness of breath. No vomiting or abdominal pain. Tolerating oral diet. No fever. Hemodynamically stable. Admitted for acute encephalopathy secondary to sepsis due to UTI. No other acute events or complaints. - Constitutional Vitals: Temp Pulse Resp BP Pulse Ox 98.4 F 84 16 139/64 97 02/25/17 11:40 02/25/17 11:40 02/25/17 11:40 02/25/17 11:40 02/25/17 11:40 General appearance: Present: A&O X 3, pleasant, no acute distress, obese, answers questions appropriately - Head Head exam: Present: atraumatic - Eye Eye exam: Present: EOMI - ENT ENT exam: Present: mucous membranes dry - Respiratory Respiratory exam: Present: CTAB. Absent: rales, rhonchi, wheezes, tachypnea - Cardiovascular Cardiovascular exam: Present: RRR, +S1, +S2 - GI/Abdominal GI/Abdominal exam: Present: distended (Ascites present), soft. Absent: firm, guarding, tenderness - Extremities Exam Extremities exam: Present: pedal edema (bilateral pedal edema 2+), radial pulses palpable and symmetrical. Absent: cyanotic - Neurological Exam Neurological exam: Present: alert, oriented X3. Absent: facial droop, speech deficit Additional comments: Normal strength and upper extremities, patient has history of paraplegia due to spinal surgery, weakness in both lower extremities, chronic indwelling Coleman catheter Internal Medicine: Result - Labs CBC & Chem 7: 02/25/17 05:06 02/25/17 05:06 Labs: Short CBC 02/25/17 Range/Units 05:06 WBC 3.3 L (4.3-11.1) K/mcL Hgb 10.9 L D (12.9-16.9) g/dL Hct 32.5 L (37.5-50.1) % Plt Count 40 L (140-400) K/mcL Neutrophils # 2.4 (1.6-8.9) K/mcL BMP 02/25/17 05:06 Sodium 139 Potassium 3.7 Chloride 108 Carbon Dioxide 26 BUN 14 Creatinine 0.98 Glucose 166 H Calcium 8.3 L Cardiac Enzymes 02/24/17 02/24/17 02/25/17 Range/Units 16:19 22:43 05:06 Troponin I 0.37 H* 0.56 H* 0.37 H* (0-0.03) ng/mL Liver Function 02/25/17 Range/Units 05:06 Total Bilirubin 2.4 H (0.2-1.2) mg/dL AST 61 H (5-34) Units/L ALT 22 (0-55) Units/L Alkaline Phosphatase 67 (38-126) Units/L Albumin 2.8 L D (3.5-5.0) g/dL - ABG Interpretation ABG results: PT/INR, D-dimer PT 15.9 Seconds (9.4-12.1) H 02/25/17 05:06 Consult Discharge Plan - Plan Referrals: Carolyn Bose, [facility] [Advanced Practice Nurse] - (Office closed at 1300 on Monday. Unable to make a follow up appointment. Patient arrived to our floor at 1315.)
[2017-02-25] MEDS ORDERED: Magnesium Sulfate 2 GM in D5% in Water 100 ML IVPB ONE (12:28)
--- NOTE | 2017-02-25 13:07 | Cardiology Consult Note ---
<Nahun Barbosa - Last Filed: 02/25/17 13:01> Date of Encounter: 02/25/17 Time of Encounter: 11:15 Assessment and Plan (1) Elevated troponin Current Visit: Yes Status: Acute ELevated troponin 0.36, 0.56, 0.37. Likely demand ischemia in the setting of sepsis, rhabdomyolysis, and dehydration. EKG shows ST with no acute changes. Doubt ACS. Denies chest pain or SOB. Agree with TTE. (2) Rhabdomyolysis Current Visit: Yes Status: Acute Fall at home in the setting of confusion and elevated ammonia levels. CK 1709. Hospitalist following. Qualifiers: Rhabdomyolysis type: non-traumatic Qualified Code(s): M62.82 - Rhabdomyolysis Discussion w patient/family: The assessment and plan as outlined above was discussed with the patient and/or family members who expressed understanding and agreement. All questions were answered. Thank you for involving us in the care of your patient. Please call with any questions. History of Present Illness Consult date: 02/25/17 Consult reason: Elevated troponin Chief complaint: Fall, layed for two days without help History of present illness: Mr. Lomax is a 47 year old male with a history of cirrhosis, decreased mobility due to spinal abscess, and chronic powers catheter. He was reported to be found on the ground confused at home by family. He was incontinent of stool and is powers catheter was leaking. He has a history of altered mental status d /t elevated ammonia levels. Ammonia level was elevated on admission. Patient is alert and oriented on my exam. He reports no memory of event. States he was down for two days. He was diagnosed with sepsis, UTI, and rhabdomyolysis. Cardiology consulted for elevated troponin. He denies chest pain or SOB. Denies palpitations. Past Med Surg Social Fam HX - Past Medical History Medical history: cirrhosis, GERD, liver disease, renal disease, other Psychiatric history: no psych history - Past Surgical History Surgical History: no surgical history - Social History Smoking Status: Never smoker Smokeless Tobacco Status: No (PT SHOOK HEAD NO TO SMOKING AND DRINKING) Alcohol use: none Drug use: none - Family History Mother Adopted: No Living Status: Hx Family Endocrine Disorder: Yes (Diabetic) Sister Adopted: No Living Status: Hx Family Endocrine Disorder: Yes (Diabetic) Medications and Allergies Gabapentin [Neurontin] 100 mg PO TID 06/14/16 [History] Potassium Chloride [K-Tab ER] 20 meq PO DAILY 12/22/15 [History] TraZODone 50 mg PO HS PRN 12/22/15 [History] Ergocalciferol (VITAMIN D2) [Vitamin D2 (50,000 UNIT)] 50,000 units PO QWEEK 03/25 [History] Lactulose [Enulose] 45 ml PO BID 04/17/16 [History] Omeprazole [PriLOSEC] 20 mg PO BID 04/17/16 [History] Tizanidine HCl [Zanaflex] 2 mg PO HS PRN 04/17/16 [History] Bumetanide [Bumex] 1 mg PO DAILY #7 tablet 01/04/17 [Rx] Eplerenone [Inspra] 50 mg PO BID 02/24/17 [History] Escitalopram [Lexapro] 10 mg PO DAILY 02/24/17 [History] Furosemide [Lasix] 40 mg PO DAILY 02/24/17 [History] Promethazine [Phenergan] 25 mg PO Q6HR PRN 02/24/17 [History] 3 Allergy/AdvReac Type Severity Reaction Status Date / Time milk Allergy Swelling Verified 01/09/17 20:32 of Lip/Tongue/Throat Milk Containing Products Allergy Swelling Verified 01/09/17 20:32 of Lip/Tongue/Throat All Systems Review: A 10-system review of systems was performed and is negative for pertinent findings except as documented above in the HPI. Physical Examination Vital Signs, Last 4 Hours Temp Pulse Resp BP Pulse Ox 02/25/17 11:40 98.4 F 84 16 139/64 97 General: Conversant, No Apparent Distress HEENT: Atraumatic, Normocephaly, Mucus Membranes Moist Neck: No JVD, Normal carotid pulses Cardiac: Reg Rate and Rhythm, Normal S1 and S2, No Murmur Lungs: Normal Breath Sounds, No Wheeze, Rales, Rhonchi Neuro: Alert and responsive, No focal deficits noted Abdomen: Soft, Non-Tender Skin: Other (red streaks on right arm likely d/t b/p cuff. ) Musculoskeletal: No Chest Wall Tenderness Extremities: Other (1+ BLE edema with redness in BLE. ) Results 02/25/17 05:06 02/25/17 05:06 Lab Results 02/24/17 02/24/17 02/25/17 16:19 22:43 05:06 WBC 3.3 L Hgb 10.9 L D Hct 32.5 L Plt Count 40 L INR Sodium Potassium Chloride Carbon Dioxide BUN Creatinine Glucose Calcium Total Bilirubin AST ALT Alkaline Phosphatase Troponin I 0.37 H* 0.56 H* 02/25/17 02/25/17 02/25/17 05:06 05:06 05:06 WBC Hgb Hct Plt Count INR 1.5 Sodium 139 Potassium 3.7 Chloride 108 Carbon Dioxide 26 BUN 14 Creatinine 0.98 Glucose 166 H Calcium 8.3 L Total Bilirubin 2.4 H AST 61 H ALT 22 Alkaline Phosphatase 67 Troponin I 0.37 H* - Imaging and Cardiology Echo: pending - EKG Interpretation EKG results cardiology: personally reviewed (SR with non-specific T wave changes ) Consult Discharge Plan - Plan Referrals: Carolyn Bose, [facility] TECHNICIAN [Advanced Practice Nurse] - (Office closed at 1300 on Monday. Unable to make a follow up appointment. Patient arrived to our floor at 1315.) <Mihai North - Last Filed: 02/26/17 10:31> Date of Encounter: 02/25/17 Time of Encounter: 18:15 Assessment and Plan Discussion w patient/family: The assessment and plan as outlined above was discussed with the patient and/or family members who expressed understanding and agreement. All questions were answered. Thank you for involving us in the care of your patient. Please call with any questions. History of Present Illness History of present illness: Mr. Lomax is a 47 year old male All Systems Review: A 10-system review of systems was performed and is negative for pertinent findings except as documented above in the HPI. Physical Examination Vital Signs, Last 4 Hours Temp Pulse Resp BP Pulse Ox 02/26/17 07:14 97.5 F L 101 18 138/73 96 Results 02/26/17 01:15 02/26/17 01:15 Lab Results 02/26/17 02/26/17 01:15 01:15 WBC 3.4 L Hgb 12.0 L Hct 35.6 L Plt Count 41 L Sodium 138 Potassium 3.9 Chloride 107 Carbon Dioxide 25 BUN 11 Creatinine 0.96 Glucose 198 H Calcium 7.9 L - Attending Attestation Pt seen and examined independently, chart reviewed, essentially agree with above , my evaluation as follows: Asked to evaluate pt for elevated troponin CC: I've fallen and I can't get up Pt reports was walking to bathroom, passed out, he thinks one to two days prior to admission. He was found down, confused but arrousable, incontinent of stool , unable to assist with standing. He was brought to the ER by squad, ER evaluation revealed markedly elevated ammonia levels, sepsis with probalbe UTI as source, and rhabdomyolysis. Pt does not recall inciting events prior to his fall or the ER visit. He is now resting comfortably, orientated x 3, in no apparent distress, denies previous chest pain, palpitations or shortness of breath. IMP/Plan 1. Elevated troponin, following two days of lying on floor, minimal elevation, rapid rise and decrease consistent with rehydration, non-acute EKG, most consistent with type 2 myocardial infarction with demand perfusion mismatch. Also has poor renal clearance due to acute on chronic renal failure. Will order echo to eval for LV function, new wall motion abnormalites to suggest ischemic substrate. 2. Cirrhosis: markedly elevated ammonia levels contributing to confusion, inability to ambulate, improving with rehydration. 3. Sepsis: from UTI, on IV ab, improving; 4. Rhabdomyolysis; muscle necrosis due to inactivity, hypotension, dehydration , improving on medical tx. Will follow with you with additional recommendations if indicated pending sequential enzemes and cardiac imaging.
[2017-02-25] MEDS: Dexmedetomidine HCl 400 MCG/100 ML MLS IVC SCH (14:26)
[2017-02-25] MEDS ORDERED: Nicotine 2 MG GUM BC PRN (19:55)
[2017-02-25] MEDS ORDERED: Ketorolac 15 MG/ML VIAL IVP ONE (20:50)
[2017-02-25] MEDS ORDERED: *HR* Morphine 2 MG/ML SYRINGE IVP ONE (23:05)
[2017-02-26 01:28] LABS: Basophils % 0.3 %; Eosinophils # 0.1 K/mcL (0.0-0.6); Eosinophils % 1.5 %; Hematocrit 35.6 % (37.5-50.1); Immature Granulocytes % 0.3 % (0-4); Immature Platelets 3.4 % (1.1-6.1); Lymphocytes # 0.5 K/mcL (0.6-4.6); Lymphocytes % 13.2 %; Mean Corpuscular HGB Conc 33.7 g/dL (31.6-35.5); Mean Platelet Volume 10.8 fL (9.4-12.4); Monocytes # 0.3 K/mcL (0.0-1.3); Monocytes % 8.2 %; Neutrophils # 2.6 K/mcL (1.6-8.9); Red Blood Count 4.14 M/mcL (4.19-5.50); Red Cell Distribution Width 15.1 % (11.5-14.5); Segmented Neutrophils % 76.5 %
[2017-02-26 01:30] LABS: Platelet Count 41 K/mcL (140-400)
[2017-02-26 01:41] LABS: BUN/Creatinine Ratio 11 (6-26); Blood Urea Nitrogen 11 mg/dL (8-26); Calcium 7.9 mg/dL (8.6-10.8); Carbon Dioxide 25 mEq/L (19-29); Chloride 107 mEq/L (98-109); Glucose 198 mg/dL (70-99); Osmolality,Calculated 291 (280-300); Potassium 3.9 mEq/L (3.5-4.5); Sodium 138 mEq/L (136-145); eGFR For African Americans > 60 (> 60); eGFR For Non-African Americans > 60 (> 60)
[2017-02-26] MEDS ORDERED: Vancomycin 1,500 MG in D5% in Water 250 ML IVPB SCH (03:00)
[2017-02-26] MEDS: 0.9 % Sodium Chloride 1,000 ML IVC SCH ×2 (07:54→08:09)
[2017-02-26] MEDS: Dexmedetomidine HCl 400 MCG/100 ML MLS IVC SCH (07:55)
[2017-02-26] MEDS: Aspirin 81 MG TAB.CHEW PO SCH (08:08)
[2017-02-26] MEDS: Spironolactone 25 MG TABLET PO SCH (08:08)
[2017-02-26] MEDS: Lactulose Oral Soln 20 GM/30 ML UDC PO SCH ×3 (08:08→20:04)
[2017-02-26] MEDS: Furosemide 40 MG/4 ML VIAL IVP SCH (08:09)
[2017-02-26] MEDS: Pantoprazole 40 MG VIAL IVP SCH (08:09)
--- NOTE | 2017-02-26 14:10 | Internal Med Progress Note ---
Date of Encounter: 02/26/17 Time of Encounter: 10:00 - Assessment and plan (1) Sepsis Current Visit: Yes Status: Acute Assessment and plan: Sepsis present on admission - secondary to UTI, likely gram-negative bacilli, ESBL - probably due to chronic indwelling Coleman catheter IV Meropenem, IV Zyvox (VRE and ESBL in the past) Cultures - urine positive for Escherichia coli ESBL Lactic acid - 1.6 WBC - 3.4 CT head, done today- no acute intracranial abnormality Chest x-ray - mild pulmonary vascular congestion without overt pulmonary edema, otherwise negative Cardiac telemetry, monitor closely Qualifiers: Sepsis type: sepsis due to unspecified organism Qualified Code(s): A41.9 - Sepsis, unspecified organism (2) Acute encephalopathy Current Visit: No Status: Acute Assessment and plan: Acute encephalopathy secondary to sepsis due to UTI - now resolved Continue IV antibiotics and lactulose Unlikely to be hepatic encephalopathy as ammonia is 59 (3) Rhabdomyolysis Current Visit: Yes Status: Acute Assessment and plan: Elevated CK level - unclear as to how long the patient was unresponsive on the floor CK level - 857 Monitor renal function, encourage by mouth fluids Repeat CK level and labs in a.m. Qualifiers: Rhabdomyolysis type: non-traumatic Qualified Code(s): M62.82 - Rhabdomyolysis (4) Elevated troponin Current Visit: Yes Status: Acute Assessment and plan: Troponin peak is 0.56, trending down - probably due to sepsis and rhabdomyolysis - no anginal symptoms, unlikely to be ACS EKG - sinus tachycardia with no acute ST-T changes BN peptide - 132 Echocardiogram - LVEF 65%, normal diastolic function, mild concentric LVH Continue aspirin, cardiac telemetry (5) Thrombocytopenia Current Visit: Yes Status: Chronic Assessment and plan: Chronic Thrombocytopenia - secondary to cirrhosis of liver No active bleeding, avoid anticoagulants at this time Will also need to hold Aspirin in view of thrombocytopenia Monitor closely, transfuse platelets if any bleeding develops (6) Cirrhosis of liver Current Visit: Yes Status: Chronic Assessment and plan: Chronic cirrhosis of liver - unclear etiology - probably SUH Causing Pancytopenia Qualifiers: Hepatic cirrhosis type: unspecified biliary cirrhosis Qualified Code(s): K74.5 - Biliary cirrhosis, unspecified (7) Paraplegia Current Visit: No Status: Chronic Assessment and plan: 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 and requires chronic indwelling Coleman catheter - now able to ambulate with assistance PT and OT evaluation (8) DVT (deep venous thrombosis) Current Visit: No Status: Chronic Assessment and plan: History of right upper extremity DVT in the past Patient states he does not take Coumadin anymore Qualifiers: DVT location: upper extremity Affected thrombotic vein of extremity: unspecified vein of extremity Chronicity: acute Laterality: right Qualified Code(s): I82.621 - Acute embolism and thrombosis of deep veins of right upper extremity (9) DVT prophylaxis Current Visit: Yes Status: Acute Assessment and plan: Continue SCDs, avoid anticoagulants due to thrombocytopenia - Time Spent With Patient 25 - 35 minutes - Subjective Interval history: Examined this morning. Patient is awake and alert. Not in any distress. Denies chest pain or shortness of breath. No vomiting or abdominal pain. Tolerating oral diet. No fever. Complains of severe headache, which is generalized. States it is throbbing, rates it 7 out of 10. Hemodynamically stable. Patient can ambulate with assistance. No other acute events or complaints. - Constitutional Vitals: Temp Pulse Resp BP Pulse Ox 98.4 F 91 18 156/90 98 02/26/17 11:37 02/26/17 11:37 02/26/17 11:37 02/26/17 11:37 02/26/17 11:37 General appearance: Present: A&O X 3, pleasant, no acute distress, obese, answers questions appropriately - Head Head exam: Present: atraumatic - Eye Eye exam: Present: EOMI - ENT ENT exam: Present: mucous membranes moist - Respiratory Respiratory exam: Present: CTAB. Absent: rales, rhonchi, wheezes, tachypnea - Cardiovascular Cardiovascular exam: Present: RRR, +S1, +S2 - GI/Abdominal GI/Abdominal exam: Present: distended (Ascites present), soft. Absent: firm, guarding, tenderness - Extremities Exam Extremities exam: Present: pedal edema (Bilateral lower leg edema 2+), radial pulses palpable and symmetrical. Absent: cyanotic - Neurological Exam Neurological exam: Present: alert, oriented X3. Absent: facial droop, speech deficit Additional comments: Normal strength and upper extremities, patient has history of paraplegia due to spinal surgery, he continues to have weakness in both lower extremities, but able to ambulate with assistance, chronic indwelling Coleman catheter Internal Medicine: Result - Labs CBC & Chem 7: 02/26/17 01:15 02/26/17 01:15 Labs: Short CBC 02/26/17 Range/Units 01:15 WBC 3.4 L (4.3-11.1) K/mcL Hgb 12.0 L (12.9-16.9) g/dL Hct 35.6 L (37.5-50.1) % Plt Count 41 L (140-400) K/mcL Neutrophils # 2.6 (1.6-8.9) K/mcL BMP 02/26/17 01:15 Sodium 138 Potassium 3.9 Chloride 107 Carbon Dioxide 25 BUN 11 Creatinine 0.96 Glucose 198 H Calcium 7.9 L - ABG Interpretation ABG results: PT/INR, D-dimer PT 15.9 Seconds (9.4-12.1) H 02/25/17 05:06 - Impressions Impressions Head CT 02/26/17 10:08 IMPRESSION: No acute intracranial process identified. D/ / Rigoberto Bonner MD / Rigoberto Bonner MD Interpreting Provider: Rigoberto Bonner MD Consult Discharge Plan - Plan Referrals: Carolyn Bose, [facility] [Advanced Practice Nurse] - (Office closed at 1300 on Monday. Unable to make a follow up appointment. Patient arrived to our floor at 1315.)
--- NOTE | 2017-02-26 14:30 | Cardiology Progress Note ---
Date of Encounter: 02/26/17 Time of Encounter: 12:15 Assessment and Plan (1) Elevated troponin Current Visit: Yes Status: Acute ELevated troponin 0.36, 0.56, 0.37. Likely demand ischemia in the setting of sepsis, rhabdomyolysis, and dehydration. EKG shows ST with no acute changes. Doubt ACS. Denies chest pain or SOB. TTE shows preserved EF. No further cardiac testing indicated. Cardiology will sign off. Call with questions. (2) Rhabdomyolysis Current Visit: Yes Status: Acute Fall at home in the setting of confusion and elevated ammonia levels. CK 1709. Hospitalist following. Qualifiers: Rhabdomyolysis type: non-traumatic Qualified Code(s): M62.82 - Rhabdomyolysis Discussion w patient/family: The assessment and plan as outlined above was discussed with the patient and/or family members who expressed understanding and agreement. All questions were answered. Thank you for involving us in the care of your patient. Please call with any questions. Subjective Principal diagnosis: Fall Interval history: Mr. Lomax is resting in bed. Continues to to deny chest pain. Reports vision changes in left eye since admission. Says he didnt want to tell anyone so he wouldn't stay so long. CT negative for acute infarct. Objective Vital Signs, Last 4 Hours Temp Pulse Resp BP Pulse Ox 02/26/17 11:37 98.4 F 91 18 156/90 98 General: Conversant, No Apparent Distress HEENT: Atraumatic, Normocephaly, Mucus Membranes Moist Neck: No JVD, Normal carotid pulses Cardiac: Reg Rate and Rhythm, Normal S1 and S2, No Murmur Lungs: Normal Breath Sounds, No Wheeze, Rales, Rhonchi Neuro: Alert and responsive, No focal deficits noted Abdomen: Soft, Non-Tender Skin: No rashes noted on visualized skin Musculoskeletal: No Chest Wall Tenderness Extremities: No Clubbing, No Cyanosis, Normal Pulses, Other (redness and swelling of BLE noted. ) Results 02/26/17 01:15 02/26/17 01:15 Lab Results 02/26/17 02/26/17 01:15 01:15 WBC 3.4 L Hgb 12.0 L Hct 35.6 L Plt Count 41 L Sodium 138 Potassium 3.9 Chloride 107 Carbon Dioxide 25 BUN 11 Creatinine 0.96 Glucose 198 H Calcium 7.9 L Consult Discharge Plan - Plan Referrals: Carolyn Bose, [facility] [Advanced Practice Nurse] - (Office closed at 1300 on Monday. Unable to make a follow up appointment. Patient arrived to our floor at 1315.)
[2017-02-26] MEDS: Meropenem 1,000 MG in 0.9 % Sodium Chloride Mini Bag 100 ML IVPB SCH (16:16)
--- NOTE | 2017-02-26 17:05 | Electrocardiograph Report ---
[address] [address] Test Date: 2017-02-24 Pat Name: Percy Lomax Department: 110 Room: 2N10 Gender: M Public Relations Intern: [id number] : 1970 Requested By: Damian Amador Order Number: [id number] Reading MD: Aniket You MD Measurements Intervals [place] Rate: 79 P: 13 LA: 128 QRS: -5 QRSD: 106 T: 3 QT: 415 QTc: 449 Interpretive Statements SINUS RHYTHM INCOMPLETE RIGHT BUNDLE BRANCH BLOCK MINIMAL VOLTAGE CRITERIA FOR LVH Electronically Signed On 02-26-2017 17:04:12 EDT by Aniket You MD
[2017-02-26] MEDS: traZODone 50 MG TABLET PO PRN (21:34)
[2017-02-27] MEDS: Meropenem 1,000 MG in 0.9 % Sodium Chloride Mini Bag 100 ML IVPB SCH ×2 (00:03→09:39)
[2017-02-27 04:28] LABS: BUN/Creatinine Ratio 10 (6-26); Blood Urea Nitrogen 8 mg/dL (8-26); Calcium 7.8 mg/dL (8.6-10.8); Carbon Dioxide 24 mEq/L (19-29); Chloride 109 mEq/L (98-109); Creatine Kinase 397 Units/L (30-200); Glucose 142 mg/dL (70-99); Osmolality,Calculated 287 (280-300); Sodium 138 mEq/L (136-145); eGFR For African Americans > 60 (> 60); eGFR For Non-African Americans > 60 (> 60)
[2017-02-27 04:29] LABS: Potassium 3.6 mEq/L (3.5-4.5)
[2017-02-27 04:31] LABS: Basophils % 0.6 %; Immature Granulocytes % 0.3 % (0-4)
[2017-02-27 04:33] LABS: Eosinophils # 0.1 K/mcL (0.0-0.6); Eosinophils % 2.3 %; Hematocrit 33.7 % (37.5-50.1); Hemoglobin 11.4 g/dL (12.9-16.9); Immature Platelets 2.9 % (1.1-6.1); Lymphocytes # 0.5 K/mcL (0.6-4.6); Lymphocytes % 13.3 %; Mean Corpuscular HGB Conc 33.8 g/dL (31.6-35.5); Mean Corpuscular Hemoglobin 28.6 pg (28.0-33.3); Mean Corpuscular Volume 84.7 fL (83.0-100.0); Mean Platelet Volume 10.6 fL (9.4-12.4); Monocytes # 0.3 K/mcL (0.0-1.3); Monocytes % 8.7 %; Neutrophils # 2.6 K/mcL (1.6-8.9); Red Blood Count 3.98 M/mcL (4.19-5.50); Red Cell Distribution Width 15.1 % (11.5-14.5); Segmented Neutrophils % 74.8 %
[2017-02-27 04:40] LABS: Platelet Count 53 K/mcL (140-400)
[2017-02-27 05:17] LABS: Platelet Estimate Decreased (Normal)
[2017-02-27] MEDS: Lactulose Oral Soln 20 GM/30 ML UDC PO SCH ×3 (08:11→22:47)
[2017-02-27] MEDS ORDERED: Aminoglycoside Consult 1 EACH MC ONE (09:10)
[2017-02-27] MEDS ORDERED: *HR* HYDROcodone/Acet 5/325 mg TABLET PO PRN (09:16)
[2017-02-27] MEDS: Spironolactone 25 MG TABLET PO SCH (09:39)
[2017-02-27] MEDS: Pantoprazole 40 MG VIAL IVP SCH (09:39)
[2017-02-27] MEDS: Furosemide 40 MG/4 ML VIAL IVP SCH (09:39)
--- NOTE | 2017-02-27 13:33 | Internal Med Progress Note ---
Date of Encounter: 02/27/17 Time of Encounter: 09:30 - Assessment and plan (1) Sepsis Current Visit: Yes Status: Acute Assessment and plan: Sepsis present on admission - secondary to UTI, gram-negative bacilli, ESBL - probably due to chronic indwelling Coleman catheter - slowly improving IV Meropenem, IV Zyvox (VRE and ESBL in the past) Cultures - urine positive for Escherichia coli ESBL Lactic acid - 1.6 WBC - 3.5 CT head, done today- no acute intracranial abnormality Chest x-ray - mild pulmonary vascular congestion without overt pulmonary edema, otherwise negative Cardiac telemetry, monitor closely Qualifiers: Sepsis type: sepsis due to unspecified organism Qualified Code(s): A41.9 - Sepsis, unspecified organism (2) Acute encephalopathy Current Visit: No Status: Acute Assessment and plan: Acute encephalopathy secondary to sepsis due to UTI - symptoms now resolved Continue IV antibiotics and lactulose Unlikely to be hepatic encephalopathy as ammonia is 59 (3) Rhabdomyolysis Current Visit: Yes Status: Acute Assessment and plan: Elevated CK level - unclear as to how long the patient was unresponsive on the floor CK level - 397 Monitor renal function, encourage by mouth fluids, Repeat CK level and labs in a.m. Qualifiers: Rhabdomyolysis type: non-traumatic Qualified Code(s): M62.82 - Rhabdomyolysis (4) Elevated troponin Current Visit: Yes Status: Acute Assessment and plan: Troponin peak is 0.56, trending down - probably due to sepsis and rhabdomyolysis - no anginal symptoms, unlikely to be ACS EKG - sinus tachycardia with no acute ST-T changes BN peptide - 132 Echocardiogram - LVEF 65%, normal diastolic function, mild concentric LVH Cardiology consult - recommendations reviewed, appreciate input Continue aspirin, cardiac telemetry (5) Thrombocytopenia Current Visit: Yes Status: Chronic Assessment and plan: Chronic Thrombocytopenia - secondary to cirrhosis of liver No active bleeding, avoid anticoagulants at this time Hold Aspirin in view of thrombocytopenia Monitor closely, transfuse platelets if any bleeding develops (6) Cirrhosis of liver Current Visit: Yes Status: Chronic Assessment and plan: Chronic cirrhosis of liver - unclear etiology - probably SUH Causing Pancytopenia Qualifiers: Hepatic cirrhosis type: unspecified biliary cirrhosis Qualified Code(s): K74.5 - Biliary cirrhosis, unspecified (7) Paraplegia Current Visit: No Status: Chronic Assessment and plan: 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 and requires chronic indwelling Coleman catheter Now able to ambulate with assistance PT and OT evaluation (8) DVT (deep venous thrombosis) Current Visit: No Status: Chronic Assessment and plan: History of right upper extremity DVT in the past Patient states he does not take Coumadin anymore Qualifiers: DVT location: upper extremity Affected thrombotic vein of extremity: unspecified vein of extremity Chronicity: acute Laterality: right Qualified Code(s): I82.621 - Acute embolism and thrombosis of deep veins of right upper extremity (9) DVT prophylaxis Current Visit: Yes Status: Acute Assessment and plan: Continue SCDs, avoid anticoagulants due to Thrombocytopenia - Time Spent With Patient 25 - 35 minutes - Subjective Interval history: Examined this morning. Patient is awake and alert. Not in any distress. Denies chest pain or shortness of breath. No vomiting or abdominal pain. Tolerating oral diet. No fever. Complains of a dull headache, but symptoms have improved. CT head is negative for any acute intracranial process. Hemodynamically stable. Patient can ambulate with assistance. ESBL in urine. IV Meropenem has been started. No other acute events or complaints. - Constitutional Vitals: Temp Pulse Resp BP Pulse Ox 97.5 F L 94 16 146/78 97 02/27/17 11:30 02/27/17 11:30 02/27/17 11:30 02/27/17 11:30 02/27/17 11:30 General appearance: Present: A&O X 3, pleasant, no acute distress, obese, answers questions appropriately - Head Head exam: Present: atraumatic - Eye Eye exam: Present: EOMI - ENT ENT exam: Present: mucous membranes moist - Respiratory Respiratory exam: Present: CTAB. Absent: accessory muscle use, rales, rhonchi, wheezes, tachypnea - Cardiovascular Cardiovascular exam: Present: RRR, +S1, +S2 - GI/Abdominal GI/Abdominal exam: Present: distended (Ascites present, mild tenderness), soft, tenderness (Mild left lower quadrant). Absent: firm, guarding - Extremities Exam Extremities exam: Present: pedal edema (Bilateral lower leg 2+ edema), radial pulses palpable and symmetrical. Absent: cyanotic - Neurological Exam Neurological exam: Present: alert, oriented X3. Absent: facial droop, speech deficit Additional comments: Normal strength and upper extremities, patient has history of paraplegia due to spinal surgery, he continues to have weakness in both lower extremities, but able to ambulate with assistance, chronic indwelling Coleman catheter Internal Medicine: Result - Labs CBC & Chem 7: 02/27/17 03:54 02/27/17 03:54 Labs: Short CBC 02/27/17 Range/Units 03:54 WBC 3.5 L (4.3-11.1) K/mcL Hgb 11.4 L (12.9-16.9) g/dL Hct 33.7 L (37.5-50.1) % Plt Count 53 L (140-400) K/mcL Neutrophils # 2.6 (1.6-8.9) K/mcL BMP 02/27/17 03:54 Sodium 138 Potassium 3.6 Chloride 109 Carbon Dioxide 24 BUN 8 Creatinine 0.78 Glucose 142 H Calcium 7.8 L - ABG Interpretation ABG results: PT/INR, D-dimer PT 15.9 Seconds (9.4-12.1) H 02/25/17 05:06 Consult Discharge Plan - Plan Referrals: Carolyn Bose, [facility] [Advanced Practice Nurse] - (Office closed at 1300 on Monday. Unable to make a follow up appointment. Patient arrived to our floor at 1315.)
[2017-02-27] MEDS ORDERED: Ertapenem 1,000 MG in 0.9 % Sodium Chloride Mini Bag 100 ML IVPB SCH (16:00)
[2017-02-28 07:43] LABS: Mean Platelet Volume 10.9 fL (9.4-12.4)
[2017-02-28 07:44] LABS: Basophils % 0.5 %; Eosinophils # 0.1 K/mcL (0.0-0.6); Eosinophils % 3.8 %; Hematocrit 31.6 % (37.5-50.1); Hemoglobin 10.9 g/dL (12.9-16.9); Lymphocytes # 0.3 K/mcL (0.6-4.6); Lymphocytes % 16.2 %; Mean Corpuscular HGB Conc 34.5 g/dL (31.6-35.5); Mean Corpuscular Hemoglobin 29.1 pg (28.0-33.3); Mean Corpuscular Volume 84.5 fL (83.0-100.0); Monocytes # 0.3 K/mcL (0.0-1.3); Monocytes % 14.6 %; Neutrophils # 1.2 K/mcL (1.6-8.9); Red Blood Count 3.74 M/mcL (4.19-5.50); Red Cell Distribution Width 15.3 % (11.5-14.5); Segmented Neutrophils % 64.9 %
[2017-02-28] MEDS: Lactulose Oral Soln 20 GM/30 ML UDC PO SCH ×2 (07:45→14:36)
[2017-02-28] MEDS: Furosemide 40 MG/4 ML VIAL IVP SCH (07:45)
[2017-02-28] MEDS: Spironolactone 25 MG TABLET PO SCH (07:45)
[2017-02-28 08:00] LABS: Platelet Count 45 K/mcL (140-400)
[2017-02-28 08:48] LABS: BUN/Creatinine Ratio 10 (6-26); Blood Urea Nitrogen 8 mg/dL (8-26); Calcium 8.1 mg/dL (8.6-10.8); Carbon Dioxide 27 mEq/L (19-29); Chloride 108 mEq/L (98-109); Creatine Kinase 303 Units/L (30-200); Glucose 118 mg/dL (70-99); Osmolality,Calculated 287 (280-300); Potassium 3.7 mEq/L (3.5-4.5); Sodium 139 mEq/L (136-145); eGFR For African Americans > 60 (> 60); eGFR For Non-African Americans > 60 (> 60)
[2017-02-28 09:12] LABS: Anisocytosis 1+ (Not Present); Large Platelets Present (Not Present); Platelet Estimate Decreased (Normal); Poikilocytosis 1+ (Not Present)
--- NOTE | 2017-02-28 09:34 | Internal Med Progress Note ---
<AnthonyletyMauricio - Last Filed: 02/28/17 09:55> Date of Encounter: 02/28/17 Time of Encounter: 09:15 - Assessment and plan (1) Sepsis Status: Acute Assessment and plan: Sepsis present on admission - secondary to UTI, gram-negative bacilli, ESBL - likely due to chronic indwelling Powers catheter - slowly improving IV Meropenem, IV Zyvox Stopped. continue IV ertapenem. Will consult ID Cultures - urine positive for Escherichia coli ESBL WBC - 1.9 CT head - no acute intracranial abnormality Chest x-ray - mild pulmonary vascular congestion without overt pulmonary edema, otherwise negative Continue Cardiac telemetry Continue to monitor Qualifiers: Sepsis type: sepsis due to unspecified organism Qualified Code(s): A41.9 - Sepsis, unspecified organism (2) Acute encephalopathy Status: Acute Assessment and plan: Acute encephalopathy secondary to sepsis due to UTI - symptoms now resolved Continue IV antibiotics and lactulose ammonia 59 (3) Rhabdomyolysis Status: Acute Assessment and plan: Elevated CK level - unclear as to how long the patient was unresponsive on the floor CK level - 1589 on admission now down to 303 Continue Oral fluids Continue to monitor Qualifiers: Rhabdomyolysis type: non-traumatic Qualified Code(s): M62.82 - Rhabdomyolysis (4) DVT (deep venous thrombosis) Status: Chronic Assessment and plan: History of RUE DVT in the past Patient no longer on anticoagulation Continue SCDs, hold anticoagulation due to thrombocytopenia. 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 Unlikely ACS. EKG - sinus tachycardia with no acute ST-T changes BNP- 132 Echocardiogram - LVEF 65%, normal diastolic function, mild concentric LVH Cardiology has signed off. Continue aspirin, cardiac telemetry (8) Thrombocytopenia Status: Chronic Assessment and plan: Chronic Thrombocytopenia -2/2 to cirrhosis of liver Stable. No active bleeding, avoid anticoagulants at this time cntinue to hold ASA Continue tot monitor transfuse platelets if any bleeding develops (9) Hypertension Status: Acute Assessment and plan: Patient had elevated BPs on admission not on home BP meds. Patient has PRN hydralazine on board for BPs over 170s. BP has remained below this level. Qualifiers: Hypertension type: essential hypertension Qualified Code(s): I10 - Essential (primary) hypertension - Subjective Interval history: Patient reports feeling fine. Patient denies pain, fever, chills, urinary sxs. Patient has chronic indwelling powers and has multiple UTIs in the past. Patient reports he knew he had a UTI because of the smell. Patient has no feeling from the waist down. Patient reports he was supposed to have surgery with urology yesterday. They were supposed to have botox administered to his bladder, a circumcision and placement of a larger powers. - Constitutional Vitals: Temp Pulse Resp BP Pulse Ox 98.4 F 111 18 163/78 94 02/28/17 07:21 02/28/17 07:21 02/28/17 07:21 02/28/17 07:21 02/28/17 07:21 General appearance: Present: A&O X 3, pleasant, no acute distress, obese, answers questions appropriately - Head Head exam: Present: atraumatic, normocephalic - Eye Eye exam: Present: sclera anicteric - ENT ENT exam: Present: mucous membranes moist - Neck Neck exam general surgery: Present: supple, trachea midline - Respiratory Respiratory exam: Present: CTAB. Absent: rales, rhonchi, wheezes - Cardiovascular Cardiovascular exam: Present: RRR, +S1, +S2. Absent: diastolic murmur, gallop, rubs, systolic murmur - GI/Abdominal GI/Abdominal exam: Present: distended, normal bowel sounds, soft. Absent: tenderness - Extremities Exam Extremities exam: Present: pedal edema. Absent: tenderness - Back Exam Additional comments: scar from prior back surgery present - Neurological Exam Neurological exam: Present: alert, oriented X3. Absent: facial droop, speech deficit - Psychiatric Psychiatric exam: Present: normal affect, normal mood Internal Medicine: Result - Labs CBC & Chem 7: 02/28/17 06:32 02/28/17 06:32 Labs: Short CBC 02/28/17 Range/Units 06:32 WBC 1.9 L (4.3-11.1) K/mcL Hgb 10.9 L (12.9-16.9) g/dL Hct 31.6 L (37.5-50.1) % Plt Count 45 L (140-400) K/mcL Neutrophils # 1.2 L (1.6-8.9) K/mcL BMP 02/28/17 06:32 Sodium 139 Potassium 3.7 Chloride 108 Carbon Dioxide 27 BUN 8 Creatinine 0.77 Glucose 118 H Calcium 8.1 L - ABG Interpretation ABG results: PT/INR, D-dimer PT 15.9 Seconds (9.4-12.1) H 02/25/17 05:06 Consult Discharge Plan - Plan Referrals: Carolyn Boes, [facility] [Advanced Practice Nurse] - 03/09/17 10:45 am () Prescriptions: Nitrofurantoin (BID) [Macrobid] 100 mg PO BID #28 capsule <Ike Rodney - Last Filed: 02/28/17 18:33> Date of Encounter: 02/28/17 - Constitutional Vitals: Temp Pulse Resp BP Pulse Ox 97.7 F 92 17 165/78 96 02/28/17 15:57 02/28/17 15:57 02/28/17 15:57 02/28/17 15:57 02/28/17 15:57 Internal Medicine: Result - Labs CBC & Chem 7: 02/28/17 06:32 02/28/17 06:32 Labs: Short CBC 02/28/17 Range/Units 06:32 WBC 1.9 L (4.3-11.1) K/mcL Hgb 10.9 L (12.9-16.9) g/dL Hct 31.6 L (37.5-50.1) % Plt Count 45 L (140-400) K/mcL Neutrophils # 1.2 L (1.6-8.9) K/mcL BMP 02/28/17 06:32 Sodium 139 Potassium 3.7 Chloride 108 Carbon Dioxide 27 BUN 8 Creatinine 0.77 Glucose 118 H Calcium 8.1 L - ABG Interpretation ABG results: PT/INR, D-dimer PT 15.9 Seconds (9.4-12.1) H 02/25/17 05:06 - Attending Attestation I examined this patient and my medical decision-making was reviewed with the Resident Physician. I agree with the documented findings, disposition and treatment plan as described except to the extent set forth below. Patient left AGAINST MEDICAL ADVICE.
--- NOTE | 2017-02-28 14:42 | Infectious Disease Consult ---
Date of Encounter: 02/28/17 Time of Encounter: 14:40 Assessment and Plan (1) UTI (urinary tract infection) Status: Acute Assessment and plan: Catheter-associated. Causative organism E. coli ESBL. Blood cultures drawn 02/24/17 are NGTD x 2 sets. Continue Ertapenem 1 gram IV daily for now (day 3). Consider switching to nitrofurantoin 100mg PO BID to complete a 14 day course. Treat through 03/12/17. Monitor renal function and for drug toxicity and dose-adjust antibiotics. Switch out powers catheter if not already done this admission. Qualifiers: Urinary tract infection type: catheter-associated UTI Indwelling urinary catheter type: indwelling urethral catheter Encounter type: initial encounter Qualified Code(s): T83.511A - Infection and inflammatory reaction due to indwelling urethral catheter, initial encounter; N39.0 - Urinary tract infection , site not specified (2) Acute encephalopathy Status: Resolved Assessment and plan: Likely secondary to UTI and hyperammonemia. CT head negative x 2. Resolved. (3) Hyperammonemia Status: Acute Assessment and plan: Ammonia level 75 on admission. Resolved. (4) Rhabdomyolysis Status: Acute Assessment and plan: Secondary to fall. CK level 1589 on admission, trending down. Further management per the primary team. Qualifiers: Rhabdomyolysis type: non-traumatic Qualified Code(s): M62.82 - Rhabdomyolysis (5) Pancytopenia Status: Acute Assessment and plan: Chronic, likely secondary to cirrhosis. Follows with [facility]. (6) Elevated troponin Status: Acute Assessment and plan: Cardiology consulted, likely demand ischemia. (7) Paraplegia Status: Chronic Assessment and plan: Secondary to spinal cord abscess surgery. Improved. Patient ambulates with walker, but still requires chronic indwelling powers catheter. Follows with [facility]. (8) Cirrhosis of liver Status: Chronic Assessment and plan: Etiology unclear, likely SUH. Outpatient follow-up with GI. Qualifiers: Hepatic cirrhosis type: unspecified biliary cirrhosis Qualified Code(s): K74.5 - Biliary cirrhosis, unspecified Infectious Disease HPI - Data of Consult Patient: known to practice within the last 3 years Consult date: 02/28/17 Requesting Physician: Mario Salinas Primary Care Provider: PCP NONE - Consult Narrative Reason for consult: ESBL UTI History of present illness: Mr. 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 The patient was admitted to the hospital February 24 for liver cirrhosis and altered mental status. We're consulted February 28 for ESBL Escherichia coli in the urine. Patient's a 47-year-old male past medical history as stated above. The patient is somewhat of a poor historian, therefore, most of the information is obtained from medical record. Apparently, the patient was found with altered mental status at home on the floor for an unknown amount of time. The patient states that he thinks he was on the floor for a couple of days before his family found him. He had been incontinent of stool and his Powers catheter was noted to be leaking. Upon arrival, the patient was afebrile, but he was tachycardic and hypertensive. Laboratory studies revealed a white blood cell count of 5.8 thousand. LFTs were mildly elevated. His ammonia level was 75. CK level was 1589. Chest x-ray was completed that showed mild pulmonary vascular congestion. A CT the head was negative. Urinalysis was positive for pyuria and the culture came back positive for Escherichia coli ESBL. Blood cultures were obtained 2 sets are currently no growth to date. On admission, the patient was started on IV vancomycin and IV Zosyn. He was transitioned to IV Rocephin and IV Zyvox based on previous cultures. He was eventually transitioned to IV meropenem in addition to the IV Zyvox. He is currently on IV ertapenem. Since admission, the patient's white blood cell count has remained low, which appears chronic based on previous records. His platelets are also low. CK level is trending down. Repeat CT of the head on February 26 was negative. Cardiology has been consulted due to an elevated troponin, which was deemed to be likely secondary to demand ischemia. We've asked to evaluate and make further recommendations. During my exam today, the patient states that overall he feels better. He tells me he was having bladder spasms and abdominal pain prior to admission, but is unable to provide me with any additional information. Currently, he denies any fevers, chills or rigors. Denies chest pain, shortness of breath, or cough. Denies nausea, vomiting, or constipation. Reports diarrhea and states he has had 3 loose stools today. Denies abdominal pain or bladder spasms at this time. Denies CVA tenderness or pain. Denies oral thrush or skin lesions. States he feels like he is back to baseline and is ready to go home soon. Prior to admission, the patient was living at home alone. He states he plans to go to [facility] on discharge. CC: Mario Fernandez-[facility] Past Med Surg Social Fam HX - Past Medical History Attestation: Yes The following information was validated with the patient. Source: patient, old records reviewed, nursing notes reviewed Medical history: cirrhosis, GERD, liver disease, renal disease, other Psychiatric history: no psych history - Past Surgical History Surgical History: no surgical history - Social History Smoking Status: Never smoker Smokeless Tobacco Status: No (PT SHOOK HEAD NO TO SMOKING AND DRINKING) Alcohol use: none Drug use: none Occupational status: disabled Current living situation: Home - Independent Activity Level: Uses cane/walker Recent Out of Country Travel Within the Last 8 Weeks: No Exposure or Possible Exposure to Illness During Travel: No - Family History Mother Adopted: No Living Status: Hx Family Endocrine Disorder: Yes (Diabetic) Sister Adopted: No Living Status: Hx Family Endocrine Disorder: Yes (Diabetic) Infectious Disease-CN:Meds Gabapentin [Neurontin] 100 mg PO TID 12/22/15 [History] Potassium Chloride [K-Tab ER] 20 meq PO DAILY 12/22/15 [History] TraZODone 50 mg PO HS PRN 12/22/15 [History] Ergocalciferol (VITAMIN D2) [Vitamin D2 (50,000 UNIT)] 50,000 units PO QWEEK 03/25 [History] Lactulose [Enulose] 45 ml PO BID 04/17/16 [History] Omeprazole [PriLOSEC] 20 mg PO BID 04/17/16 [History] Tizanidine HCl [Zanaflex] 2 mg PO HS PRN 04/17/16 [History] Bumetanide [Bumex] 1 mg PO DAILY #7 tablet 01/04/17 [Rx] Eplerenone [Inspra] 50 mg PO BID 02/24/17 [History] Escitalopram [Lexapro] 10 mg PO DAILY 02/24/17 [History] Furosemide [Lasix] 40 mg PO DAILY 02/24/17 [History] Promethazine [Phenergan] 25 mg PO Q6HR PRN 02/24/17 [History] Nitrofurantoin (BID) [Macrobid] 100 mg PO BID #28 capsule 02/28/17 [Rx] 3 Allergy/AdvReac Type Severity Reaction Status Date / Time milk Allergy Swelling Verified 01/09/17 20:32 of Lip/Tongue/Throat Milk Containing Products Allergy Swelling Verified 01/09/17 20:32 of Lip/Tongue/Throat All systems: reviewed and no additional remarkable complaints except as stated Exam - Constitutional Vitals: Temp Pulse Resp BP Pulse Ox 98.0 F 96 17 132/83 96 02/28/17 11:09 02/28/17 11:09 02/28/17 11:09 02/28/17 11:09 02/28/17 11:09 General appearance: cooperative, no acute distress, obese - Head Head exam: Present: atraumatic, normal inspection, normocephalic - Eye Eye exam: Present: EOMI, normal appearance, PERRL Pupils: Present: normal accommodation - ENT ENT exam: Present: mucous membranes moist - Neck Neck exam: Present: normal inspection - Respiratory Respiratory exam: Present: CTAB. Absent: rales, respiratory distress, rhonchi, wheezes - Cardiovascular Cardiovascular exam: Present: RRR, +S1, +S2 - GI/Abdominal GI/Abdominal exam: Present: distended (obese), normal bowel sounds, soft. Absent: tenderness Additional comments: Powers catheter noted to be draining dark yellow urine. - Extremities Exam Extremities exam: Present: normal inspection. Absent: joint swelling, pedal edema, tenderness - Back Exam Back exam: Present: normal inspection. Absent: CVA tenderness (L), CVA tenderness (R) - Neurological Exam Neurological exam: Present: alert, oriented X3. Absent: facial droop, speech deficit - Psychiatric Psychiatric exam: Present: normal affect, normal mood - Skin Skin exam: Present: dry, intact, normal color, warm Infectious Disease CN: Results - Labs CBC & Chem 7: 02/28/17 06:32 02/28/17 06:32 Cultures: Cultures 02/24/17 11:40 Urine Culture - Final Urine,Clean Catch Escherichia coli ESBL 02/24/17 12:41 Blood Culture - Preliminary Peripheral Venipuncture No growth. 02/24/17 10:29 Blood Culture - Preliminary Peripheral Venipuncture No growth. Consult Discharge Plan - Plan Referrals: Carolyn Bose, NATALEE [Advanced Practice Nurse] - 03/09/17 10:45 am () Prescriptions: Nitrofurantoin (BID) [Macrobid] 100 mg PO BID #28 capsule - Attending Attestation I examined this patient and my medical decision-making was reviewed with the Resident Physician. I agree with the documented findings, disposition and treatment plan as described except to the extent set forth below. 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 During hospital stay, he has been afebrile, tachycardic and leukopenic, CK level was 1500 and ammonia of 75, CXR no pneumonia, CT head x 2 were both negative. U/A positive for nitrites and WBC. Cultures grew E coli ESBL. Blood cultures negative x 2. Patient was started on multiple antibiotics and currently hes on Ertapenem. We are asked to see the patient to make further recommendations. At this point, patient has urinary symptoms, UTI and AMS Currently patient is on ertapenem day 3, will continue current treatment for now. If patient continues to do well clinically might consider nitrofurantoin oral x 14 days total until Mar 12. this was typed by Dr. Dos Santos
[2017-02-28 15:58] VITALS: BP 165/78
--- NOTE | 2017-02-28 18:50 | Discharge Summary ---
<Luis Antonio Crump - Last Filed: 02/28/17 18:47> Date of Encounter: 02/28/17 Time of Encounter: 18:47 - Discharge Diagnosis (1) Sepsis Priority: Primary Status: Resolved Qualifiers: Sepsis type: sepsis due to unspecified organism Qualified Code(s): A41.9 - Sepsis, unspecified organism (2) UTI (urinary tract infection) Priority: Primary Status: Acute Qualifiers: Urinary tract infection type: catheter-associated UTI Indwelling urinary catheter type: indwelling urethral catheter Encounter type: initial encounter Qualified Code(s): T83.511A - Infection and inflammatory reaction due to indwelling urethral catheter, initial encounter; N39.0 - Urinary tract infection , site not specified (3) Hypertension Priority: Secondary Status: Chronic Qualifiers: Hypertension type: essential hypertension Qualified Code(s): I10 - Essential (primary) hypertension (4) Cirrhosis of liver Priority: Secondary Status: Chronic Qualifiers: Hepatic cirrhosis type: unspecified biliary cirrhosis Qualified Code(s): K74.5 - Biliary cirrhosis, unspecified - Discharge Medications Prescriptions: Nitrofurantoin (BID) [Macrobid] 100 mg PO BID #28 capsule Home Medications: Gabapentin [Neurontin] 100 mg PO TID 12/22/15 [History] Potassium Chloride [K-Tab ER] 20 meq PO DAILY 12/22/15 [History] TraZODone 50 mg PO HS PRN 12/22/15 [History] Ergocalciferol (VITAMIN D2) [Vitamin D2 (50,000 UNIT)] 50,000 units PO QWEEK 03/25 [History] Lactulose [Enulose] 45 ml PO BID 04/17/16 [History] Omeprazole [PriLOSEC] 20 mg PO BID 04/17/16 [History] Tizanidine HCl [Zanaflex] 2 mg PO HS PRN 04/17/16 [History] Bumetanide [Bumex] 1 mg PO DAILY #7 tablet 01/04/17 [Rx] Eplerenone [Inspra] 50 mg PO BID 02/24/17 [History] Escitalopram [Lexapro] 10 mg PO DAILY 02/24/17 [History] Furosemide [Lasix] 40 mg PO DAILY 02/24/17 [History] Promethazine [Phenergan] 25 mg PO Q6HR PRN 02/24/17 [History] Nitrofurantoin (BID) [Macrobid] 100 mg PO BID #28 capsule 02/28/17 [Rx] Allergies/Adverse Reactions: 3 Allergy/AdvReac Type Severity Reaction Status Date / Time milk Allergy Swelling Verified 01/09/17 20:32 of Lip/Tongue/Throat Milk Containing Products Allergy Swelling Verified 01/09/17 20:32 of Lip/Tongue/Throat Procedures/tests Complete & Pending: Procedures Performed prior 72 hours Category Date Time Status CT head/brain wo con [CT] Stat Cat Scan 02/26/17 10:08 Completed Date of admission: 02/24/17 12:44 Primary care physician: PCP NONE Consults: 02/24/17 14:23 Consult to Nutrition [CONS] Routine Comment: Consulting Provider: NUTRITION Reason for Dietary Consult: Diet Education Consult to Electric Car Operator [CONS] Routine Reason for SW Consult: PLEASE CONTINUE TO FOLLOW. POSSIBLE NEED FOR ECF 02/25/17 07:26 Consult to Cardiology [CONS] Routine Comment: Consulting Provider: Cardiology [place] Reason for Consult: elevated troponin Call Completed: No 02/28/17 11:09 Consult to Infectious Diseases [CONS] Routine Consulting Provider: Infectious Disease [place] Reason for Consult: Abx managment for ESBL UTI Time Notified: 11:18 Call Completed: Yes Discharging clinician: Luis Antonio Crump Anticipated date of discharge: 02/28/17 - Patient Status Disposition: Left Against Medical Advice Condition: Fair - Discharge Instructions Follow Up With: Carolyn Bose, SMALL ELECTRIC ENGINE TECHNICIAN [Advanced Practice Nurse] - 03/09/17 10:45 am () Interval History: Patient was seen this morning however he was adamant about leaving AMA this afternoon. Hospital course: Mr. Lomax is a 47 year old male with history of cirrhosis and paraplegia with chronic Coleman use who presented with altered mental status. Patient was found to have a urinary tract infection which grew out ESBL Escherichia coli. Patient was initially started on meropenem and Zyvox empirically and this was transitioned to IV ertapenem once the culture and sensitivity results were returned. Patient was seen by infectious disease who recommended transitioning to by mouth nitrofurantoin. Patient was adamant that he wanted to leave the patient signed out AMA. He was given a prescription for nitrofurantoin for 14 days of treatment prior to leaving. Patient completed AMA paperwork. The risks of leaving AGAINST MEDICAL ADVICE were clearly explained to the patient and he verbalized understanding. - Time Spent with Patient Total time spent providing and/or coordinating discharge services: Less than 30 minutes - Constitutional Vitals: Temp Pulse Resp BP Pulse Ox 97.7 F 92 17 165/78 96 02/28/17 15:57 02/28/17 15:57 02/28/17 15:57 02/28/17 15:57 02/28/17 15:57 Exam: Patient was unable to be examined prior to leaving AGAINST MEDICAL ADVICE. <Ike Rodney P - Last Filed: 03/06/17 18:49> Date of Encounter: 03/06/17 Date of admission: 02/24/17 12:44 Primary care physician: PCP NONE Consults: 02/24/17 14:23 Consult to Nutrition [CONS] Routine Comment: Consulting Provider: NUTRITION Reason for Dietary Consult: Diet Education Consult to Electric Car Operator [CONS] Routine Reason for SW Consult: PLEASE CONTINUE TO FOLLOW. POSSIBLE NEED FOR ECF 02/25/17 07:26 Consult to Cardiology [CONS] Routine Comment: Consulting Provider: Cardiology [place] Reason for Consult: elevated troponin Call Completed: No 02/28/17 11:09 Consult to Infectious Diseases [CONS] Routine Consulting Provider: Infectious Disease [place] Reason for Consult: Abx managment for ESBL UTI Time Notified: 11:18 Call Completed: Yes Hospital course: Mr. Lomax is a 47 year old male - Time Spent with Patient Total time spent providing and/or coordinating discharge services: - Constitutional Vitals: Temp Pulse Resp BP Pulse Ox 97.7 F 92 17 165/78 96 02/28/17 15:57 02/28/17 15:57 02/28/17 15:57 02/28/17 15:57 02/28/17 15:57 - Attending Attestation I examined this patient and my medical decision-making was reviewed with the Resident Physician. I agree with the documented findings, disposition and treatment plan as described except to the extent set forth below.
== END 2017-02-28 16:22 | disposition left against medical advice (07) | DRG 466 ==
LOC: EMEROO 10:04 → 2NNU 10:04 → 2ANU 02-27 15:07
PROVIDERS: ADMIT Internal Medicine; ATTEND Family Medicine

== ENCOUNTER 2017-11-07 17:07 | Inpatient (IN) ==
[2017-11-07] MEDS ORDERED: 0.9 % Sodium Chloride 1,000 ML IVC ONE ×2 (17:15→18:42)
--- NOTE | 2017-11-07 17:19 | Emergency Department Note ---
Disposition Clinical Impression: Bradycardia, History of cirrhosis, Hyperammonemia, UTI (urinary tract infection ), Altered mental status, Pancytopenia, Anemia, Abrasion, Hyperglycemia Disposition: Admitted As Inpatient General Adult HPI - General Chief complaint: ED Altered Mental Status Stated complaint: unresponsive Time Seen by Provider: 11/07/17 17:12 Source: EMS Limitations: altered mental status - History of Present Illness HPI Narrative: 47-year-old male reports emergency department via EMS, he was at home laying in bed and became poorly responsive, a home health care provider notified EMS. On arrival patient was poorly responsive with a heart rate down the 40s. There is no history of fall seizure or injury. Atropine was initiated, dopamine was initiated, the patient's heart rate came up and his blood pressure came up as well. There is no history of diabetes. No history of calcium channel or beta zia medication utilization or ingestion. On arrival to the emergency department the patient is alert and able to answer questions. He denies chest pain shortness breath or abdominal pain. There are no acute complaints elicited from the patient. EMS reports the patient may have a history of high ammonia levels. Pain Scale: 0 - Related Data Home Medications Medication Instructions Recorded Confirmed Gabapentin [Neurontin] 200 mg PO TID 12/22/15 10/24/17 Potassium Chloride [K-Tab ER] 20 meq PO DAILY 12/22/15 10/24/17 TraZODone 50 mg PO HS PRN 12/22/15 02/24/17 Omeprazole [PriLOSEC] 20 mg PO BID 04/17/16 10/24/17 Tizanidine HCl [Zanaflex] 2 mg PO BID 04/17/16 10/24/17 Eplerenone [Inspra] 50 mg PO BID 02/24/17 10/24/17 Escitalopram [Lexapro] 10 mg PO DAILY 02/24/17 10/24/17 Furosemide [Lasix] 40 mg PO DAILY 02/24/17 10/24/17 Bumetanide [Bumex] 1 mg PO BID 10/24/17 10/24/17 Oxybutynin Chloride [Ditropan Xl] 5 mg PO TID 10/24/17 10/24/17 Allergies Allergy/AdvReac Type Severity Reaction Status Date / Time milk Allergy Swelling Verified 11/07/17 17:09 of Lip/Tongue/Throat Milk Containing Products Allergy Swelling Verified 11/07/17 17:09 of Lip/Tongue/Throat All systems ED: reviewed and negative except as stated. Past Medical History - Past Medical History Medical history: Reports: cirrhosis, GERD, liver disease, renal disease, other Surgical history: Reports: no surgical history, other Psychiatric history: Reports: depression - Social History Smoking Status: Never smoker Smokeless Tobacco Status: Yes (1 can/day) Alcohol use: Reports: none Drug use: Reports: none Physical Exam - General Limitations: other (The patient is sleepy in appearance but is easily arousable and follows basic commands and answers basic questions) - Head Head exam: atraumatic, normocephalic, normal inspection - Eye Eye exam: Present: normal appearance, PERRL, EOMI - ENT ENT exam: normal exam, normal oropharynx, mucous membranes moist, TM's normal bilaterally, normal external ear exam - Neck Neck exam: Present: normal inspection, full ROM, trachea midline - Chest Chest inspection: Present: normal inspection, symmetric chest wall rise. Absent : tenderness - Respiratory Respiratory exam: Present: normal lung sounds bilaterally. Absent: respiratory distress, wheezes, stridor, accessory muscle use, prolonged expiratory phase - Cardiovascular Cardiovascular exam: Present: regular rate, normal rhythm, normal heart sounds - Abdominal Exam Abdominal exam: Present: soft, Non-Tender, normal bowel sounds, diminished bowel sounds. Absent: tenderness, distention, guarding, rebound, rigidity, trauma, pulsatile mass - Female Operating Engineer present during exam: Yes - Male exam: Present: other (Retractile penis secondary to obesity, rash in the groin area suggestive of fungal infection no evidence of crepitance blackened skin oozing weeping or fluctuance, there is no evidence of Marquise's gangrene/ perennial areas unremarkable.) - Extremities Exam Extremities exam: Present: full ROM, normal capillary refill, other (Apparent abrasion medial distal thigh right side, erythema spreading up the thigh medially.). Absent: tenderness, pedal edema, calf tenderness - Expanded Lower Extremity Exam Neurovascular/Tendon exam: Present: normal capillary refill. Absent: pulse deficit, motor deficit, sensory deficit, tendon deficit, extremity cold to touch , pallor - Back Exam Back exam: Present: normal inspection, full ROM. Absent: tenderness, CVA tenderness (R), CVA tenderness (L), vertebral tenderness - Neurological Exam Neurological exam: Present: alert, oriented X3, CN II-XII intact, other (The patient is alert when aroused and follows basic commands can squeeze my hands and wiggle his toes without difficulty and I detect no focal or unilateral neurologic defect.). Absent: motor sensory deficit - Skin Skin exam: Present: warm, dry, intact, normal color. Absent: rash, cyanosis, diaphoresis, erythema, pallor Course Course Narrative: Nursing inserted a Coleman, they called me to the bedside and were concerned because the patient had edema and developed a paraphimosis. We were able to manually reduce the glands with Coleman remaining in situ. Vital Signs Temperature 97.6 F 11/07/17 17:09 Pulse Rate 59 11/07/17 17:09 Respiratory Rate 16 11/07/17 17:09 Blood Pressure 119/60 11/07/17 17:09 O2 Sat by Pulse Oximetry 100 11/07/17 17:09 Temperature 97.6 F 11/07/17 17:09 Pulse Rate 75 11/07/17 19:26 Respiratory Rate 16 11/07/17 17:09 Blood Pressure 101/61 11/07/17 19:26 O2 Sat by Pulse Oximetry 99 11/07/17 19:26 Oxygen Delivery Oxygen Delivery Room Air Medical Decision Making - [facility] Narrative Medical decision making narrative: The patient appears to be improving in the ED, he became more alert and was able to drink the lactulose. Patient was given fluids in the ED and monitored closely. Urinalysis abnormal, chest x-ray abnormal, suggestive of potential infectious processes, azithromycin and Rocephin were given IV. The patient's right thigh seem to have an abrasion or early edema or possibly cellulitis but there is no evidence of Marquise's gangrene on clinical examination. Blood cultures were sent. The patient's lactic acid level is negative. Pancytopenia noted. The patient has a history of cirrhosis/nonalcoholic, his ammonia level is significantly elevated and he has been confused. Cesar on the patient's presentation including confusion, bradycardia, in association with comorbidities and significant weight abnormal laboratory findings specifically pancytopenia and hyperammonemia, changes suggestive of UTI, and a normal normal chest x-ray I thought it would be appropriate to admit the patient the hospital. I reviewed the case with the hospitalist on-call who has accepted the patient to their care. - Lab Data Lab results reviewed: Yes I reviewed the patient's lab results. Result diagrams: 11/07/17 17:15 11/07/17 17:15 Lab Results 11/07/17 11/07/17 11/07/17 Range/Units 17:12 17:15 17:15 WBC 2.0 L (4.3-11.1) K/mcL RBC 4.04 L (4.19-5.50) M/mcL Hgb 11.7 L (12.9-16.9) g/dL Hct 34.5 L (37.5-50.1) % MCV 85.4 (83.0-100.0) fL MCH 29.0 (28.0-33.3) pg MCHC 33.9 (31.6-35.5) g/dL RDW 14.5 (11.5-14.5) % Plt Count 48 L (140-400) K/mcL MPV 11.9 (9.4-12.4) fL Immature Gran % 0.5 (0-4) % Seg Neutrophils % 72.0 % Lymphocytes % 19.0 % Monocytes % 5.0 % Eosinophils % 3.0 % Basophils % 0.5 % Neutrophils # 1.4 L (1.6-8.9) K/mcL Lymphocytes # 0.4 L (0.6-4.6) K/mcL Monocytes # 0.1 (0.0-1.3) K/mcL Eosinophils # 0.1 (0.0-0.6) K/mcL Basophils # 0.0 (0.0-0.2) K/mcL Nucleated RBCs/100 WBC 1.5 H (0) /100 WBC Sodium 138 (136-145) mEq/L Potassium 3.9 (3.5-5.1) mEq/L Chloride 104 (98-107) mEq/L Carbon Dioxide 28 (23-29) mEq/L BUN 11 (6-20) mg/dL Creatinine 1.00 (0.70-1.30) mg/dL Est GFR ( Amer) > 60 (> 60) Est GFR (Non-Af Amer) > 60 (> 60) BUN/Creatinine Ratio 11 (6-26) Glucose 255 H (70-105) mg/dL Calculated Osmolality 294 (280-300) Lactic Acid (0.5-2.2) mmol/L Calcium 8.6 (8.6-10.3) mg/dL Phosphorus 3.8 (2.7-4.5) mg/dL Magnesium 1.7 (1.6-2.6) mg/dL Total Bilirubin 1.6 H (0.3-1.0) mg/dL Direct Bilirubin 0.5 H (0.0-0.2) mg/dL Indirect Bilirubin 1.1 (0.0-1.2) mg/dL AST 26 (13-39) Units/L ALT 14 (7-52) Units/L Alkaline Phosphatase 83 (34-104) Units/L Ammonia 106 H (16-53) mcmol/L Creatine Kinase 93 (30-223) Units/L Troponin I < 0.03 (< 0.04) ng/mL C-Reactive Protein 9 (Less than 10) mg/L Serum Total Protein 6.0 L (6.4-8.9) g/dL Albumin 2.9 L (3.5-5.7) g/dL Globulin 3.1 (2.4-3.5) g/dL Albumin/Globulin Ratio 0.9 L (1.1-2.2) Lipase 26 (11-82) Units/L Urine Color (Yellow) Urine Clarity (Clear) Urine pH (5.0-8.0) pH Units Ur Specific [place] (1.010-1.025) Urine Protein (Neg-Trace) mg/dL Urine Glucose (UA) (Normal) mg/dL Urine Ketones (Negative) mg/dL Urine Blood (Negative) Urine Nitrite (Negative) Urine Bilirubin (Negative) Urine Urobilinogen (Normal) mg/dL Ur Leukocyte Esterase (Negative) Urine Microscopic RBC (0-3) per hpf Urine Microscopic WBC (0-3) per hpf Ur Squamous Epith Cells (None-Few) per lpf Urine Bacteria (None-Few) per hpf Ur Culture Indicated? (NO) Urine Opiates Screen (Dglzdj=737) ng/mL Ur Barbiturates Screen (Dtcnlt=807) ng/mL Ur Phencyclidine Scrn (Cutoff=25) ng/mL Ur Amphetamines Screen (Yfbmxb=8878) ng/mL U Benzodiazepines Scrn (Ovjxbn=545) ng/mL Urine Cocaine Screen (Cutoff= 300) ng/mL U Marijuana (THC) Screen (Cutoff = 50) ng/mL 11/07/17 11/07/17 11/07/17 Range/Units 17:22 17:38 18:37 WBC (4.3-11.1) K/mcL RBC (4.19-5.50) M/mcL Hgb (12.9-16.9) g/dL Hct (37.5-50.1) % MCV (83.0-100.0) fL MCH (28.0-33.3) pg MCHC (31.6-35.5) g/dL RDW (11.5-14.5) % Plt Count (140-400) K/mcL MPV (9.4-12.4) fL Immature Gran % (0-4) % Seg Neutrophils % % Lymphocytes % % Monocytes % % Eosinophils % % Basophils % % Neutrophils # (1.6-8.9) K/mcL Lymphocytes # (0.6-4.6) K/mcL Monocytes # (0.0-1.3) K/mcL Eosinophils # (0.0-0.6) K/mcL Basophils # (0.0-0.2) K/mcL Nucleated RBCs/100 WBC (0) /100 WBC Sodium (136-145) mEq/L Potassium (3.5-5.1) mEq/L Chloride (98-107) mEq/L Carbon Dioxide (23-29) mEq/L BUN (6-20) mg/dL Creatinine (0.70-1.30) mg/dL Est GFR ( Amer) (> 60) Est GFR (Non-Af Amer) (> 60) BUN/Creatinine Ratio (6-26) Glucose (70-105) mg/dL Calculated Osmolality (280-300) Lactic Acid 1.0 (0.5-2.2) mmol/L Calcium (8.6-10.3) mg/dL Phosphorus (2.7-4.5) mg/dL Magnesium (1.6-2.6) mg/dL Total Bilirubin (0.3-1.0) mg/dL Direct Bilirubin (0.0-0.2) mg/dL Indirect Bilirubin (0.0-1.2) mg/dL AST (13-39) Units/L ALT (7-52) Units/L Alkaline Phosphatase (34-104) Units/L Ammonia (16-53) mcmol/L Creatine Kinase (30-223) Units/L Troponin I (< 0.04) ng/mL C-Reactive Protein (Less than 10) mg/L Serum Total Protein (6.4-8.9) g/dL Albumin (3.5-5.7) g/dL Globulin (2.4-3.5) g/dL Albumin/Globulin Ratio (1.1-2.2) Lipase (11-82) Units/L Urine Color Dark Yellow (Yellow) Urine Clarity Cloudy A (Clear) Urine pH 6.0 (5.0-8.0) pH Units Ur Specific [place] 1.016 (1.010-1.025) Urine Protein Negative (Neg-Trace) mg/dL Urine Glucose (UA) Normal (Normal) mg/dL Urine Ketones Negative (Negative) mg/dL Urine Blood Negative (Negative) Urine Nitrite Positive A (Negative) Urine Bilirubin Small H (Negative) Urine Urobilinogen 2.0 H (Normal) mg/dL Ur Leukocyte Esterase Large H (Negative) Urine Microscopic RBC 3-5 H (0-3) per hpf Urine Microscopic WBC 50-100 H (0-3) per hpf Ur Squamous Epith Cells Few (None-Few) per lpf Urine Bacteria Many H (None-Few) per hpf Ur Culture Indicated? YES A (NO) Urine Opiates Screen Negative (Kruchq=021) ng/mL Ur Barbiturates Screen Negative (Cksmvw=988) ng/mL Ur Phencyclidine Scrn Negative (Cutoff=25) ng/mL Ur Amphetamines Screen Negative (Xtxfep=2111) ng/mL U Benzodiazepines Scrn Negative (Tqjgcv=155) ng/mL Urine Cocaine Screen Negative (Cutoff= 300) ng/mL U Marijuana (THC) Screen Negative (Cutoff = 50) ng/mL - Radiology Data Radiology results reviewed: Yes I reviewed the patient's radiology results.
[2017-11-07 17:42] LABS: Basophils % 0.5 %; Immature Granulocytes % 0.5 % (0-4); Mean Platelet Volume 11.9 fL (9.4-12.4); Red Cell Distribution Width 14.5 % (11.5-14.5)
[2017-11-07 17:43] LABS: Eosinophils # 0.1 K/mcL (0.0-0.6); Hematocrit 34.5 % (37.5-50.1); Hemoglobin 11.7 g/dL (12.9-16.9); Lymphocytes # 0.4 K/mcL (0.6-4.6); Mean Corpuscular HGB Conc 33.9 g/dL (31.6-35.5); Mean Corpuscular Volume 85.4 fL (83.0-100.0); Monocytes # 0.1 K/mcL (0.0-1.3); Neutrophils # 1.4 K/mcL (1.6-8.9); Nucleated Red Blood Cells 1.5 /100 WBC (0); Red Blood Count 4.04 M/mcL (4.19-5.50)
[2017-11-07 17:44] LABS: Platelet Count 48 K/mcL (140-400)
[2017-11-07 17:48] LABS: Bilirubin,Urine Small (Negative); Blood,Urine Negative (Negative); Clarity,Urine Cloudy (Clear); Color,Urine Dark Yellow (Yellow); Glucose,Urine (UA) Normal (Normal); Ketones,Urine Negative (Negative); Leukocyte Esterase,Urine Large (Negative); Nitrite,Urine Positive (Negative); Protein,Urine Negative (Neg-Trace); Specific Gravity,Urine 1.016 (1.010-1.025)
[2017-11-07 17:50] LABS: Bacteria,Urine Many per hpf (None-Few); Squamous Epithelial Cell,Urine Few per lpf (None-Few); WBC,Urine 50-100 per hpf (0-3)
[2017-11-07 18:22] LABS: Amphetamine Screen,Urine Negative ng/mL (Cutoff=1000); Barbiturate Screen,Urine Negative ng/mL (Cutoff=200); Benzodiazepines Screen,Urine Negative ng/mL (Cutoff=200); Cannabinoid Screen,Urine Negative ng/mL (Cutoff = 50); Cocaine Screen,Urine Negative ng/mL (Cutoff= 300); Opiate Screen,Urine Negative ng/mL (Cutoff=300); Phencyclidine Screen,Urine Negative ng/mL (Cutoff=25)
[2017-11-07 18:22] LABS: Alanine Aminotransferase 14 Units/L (7-52); Albumin 2.9 g/dL (3.5-5.7); Albumin/Globulin Ratio 0.9 (1.1-2.2); Alkaline Phosphatase 83 Units/L (34-104); Aspartate Amino Transferase 26 Units/L (13-39); BUN/Creatinine Ratio 11 (6-26); Bilirubin,Direct 0.5 mg/dL (0.0-0.2); Bilirubin,Indirect 1.1 mg/dL (0.0-1.2); Bilirubin,Total 1.6 mg/dL (0.3-1.0); Blood Urea Nitrogen 11 mg/dL (6-20); C-Reactive Protein 9 mg/L (Less than 10); Calcium 8.6 mg/dL (8.6-10.3); Carbon Dioxide 28 mEq/L (23-29); Chloride 104 mEq/L (98-107); Creatine Kinase 93 Units/L (30-223); Globulin 3.1 g/dL (2.4-3.5); Glucose 255 mg/dL (70-105); Lipase 26 Units/L (11-82); Magnesium 1.7 mg/dL (1.6-2.6); Osmolality,Calculated 294 (280-300); Phosphorous 3.8 mg/dL (2.7-4.5); Potassium 3.9 mEq/L (3.5-5.1); Sodium 138 mEq/L (136-145); Troponin I < 0.03 ng/mL (< 0.04); eGFR For African Americans > 60 (> 60); eGFR For Non-African Americans > 60 (> 60)
[2017-11-07] MEDS ORDERED: cefTRIAXone 2,000 MG in Water for inj. (sterile) 20 ML IVP ONE (18:40)
[2017-11-07] MEDS ORDERED: Lactulose Oral Soln 20 GM/30 ML UDC PO ONE (18:43)
[2017-11-07] MEDS ORDERED: Azithromycin 500 MG in D5% in Water 250 ML IVPB ONE (19:03)
[2017-11-07] MEDS ORDERED: Tdap (ADACEL) Vaccine 0.5 ML IM ONE (19:57)
[2017-11-07] MEDS ORDERED: Naloxone 0.4 MG/ML INJ IVP PRN (20:03)
[2017-11-07] MEDS ORDERED: D5% in Water 1,000 ML IVC PRN (20:06)
[2017-11-07] MEDS ORDERED: *HR* Dextrose 50 % in Water (Syg) 50 ML SYRINGE IVP PRN (20:06)
[2017-11-07] MEDS ORDERED: Dextrose Gel 15 GM/37.5 ML TUBE PO PRN ×2 (20:06)
--- NOTE | 2017-11-07 20:10 | Internal Med History&Physical ---
Date of Encounter: 11/07/17 Time of Encounter: 20:07 Internal Medicine - H&P: HPI Chief complaint: Confusion, decreased mental state History of present illness: Mr. Lomax is a 47 year old male who presents with confusion, decreased mental state. Found to be bradycardic in the field. Patient has a history of nonalcoholic, SUH cirrhosis. He lives alone at home and uses a walker/wheel chair. Apparently 2 years ago he had spinal surgery for a back infection where it was reported that his bones were scraped and removed infection. Unfortunately this surgery that to paralysis from the neck down and subsequently underwent a prolonged rehabilitation. He is now wheelchair bound with intermittent use of a walker. He also has a chronic neurogenic bladder where he straight catheter himself daily. He was last seen normal by his cousin at 1:30 PM today. At approximately 3 PM home health nurse visited him and found him to be incoherent, confused compared to his baseline where he is alert and oriented. EMS was called and he was subsequently found to be bradycardic in the field. Per ACS protocol he was started on dopamine prior to ED admission. In the ED were able to wean the dopamine off for heart rate in the 50s to 60s and intact blood pressure with no evidence of instability on initial monitoring. Objectively he was found to have an elevated ammonia level along with urine suspicious for UTI which is likely accurate in the setting of neurogenic bladder with intermittent straight catheterization. EKG personally reviewed with rate 59, sinus bradycardia CT/CT head/brain wo con IMPRESSION: No acute intracranial abnormality. XR/XR femur RT IMPRESSION: No acute abnormality is identified. CT/CT cervical spine wo con IMPRESSION: No acute abnormality of the cervical spine. XR/XR chest 1V portable IMPRESSION: Study was limited by the low lung volumes. Patchy perihilar and lower lobe airspace disease may represent mild edema, pneumonia and/or atelectasis. Past Med Surg Social Fam HX - Past Medical History Medical history: cirrhosis, GERD, liver disease, renal disease, other Psychiatric history: depression - Past Surgical History Surgical History: no surgical history, other - Social History Smoking Status: Never smoker Smokeless Tobacco Status: Yes (1 can/day) Alcohol use: none Drug use: none - Family History Mother Adopted: No Living Status: Hx Family Endocrine Disorder: Yes (Diabetic) Sister Adopted: No Living Status: Hx Family Endocrine Disorder: Yes (Diabetic) Internal Medicine - H&P: Meds Gabapentin [Neurontin] 200 mg PO TID 12/22/15 [History] Potassium Chloride [K-Tab ER] 20 meq PO DAILY 12/22/15 [History] TraZODone 50 mg PO HS PRN 12/22/15 [History] Omeprazole [PriLOSEC] 20 mg PO BID 04/17/16 [History] Tizanidine HCl [Zanaflex] 2 mg PO BID 04/17/16 [History] Eplerenone [Inspra] 50 mg PO BID 02/24/17 [History] Escitalopram [Lexapro] 10 mg PO DAILY 02/24/17 [History] Furosemide [Lasix] 40 mg PO DAILY 02/24/17 [History] Bumetanide [Bumex] 1 mg PO BID 10/24/17 [History] Oxybutynin Chloride [Ditropan Xl] 5 mg PO TID 10/24/17 [History] 3 Allergy/AdvReac Type Severity Reaction Status Date / Time milk Allergy Swelling Verified 11/07/17 17:09 of Lip/Tongue/Throat Milk Containing Products Allergy Swelling Verified 11/07/17 17:09 of Lip/Tongue/Throat All Systems PM: A 10-system review of systems was performed and is negative for pertinent findings except as documented above in the HPI. Review of systems: ROS 14 point review of systems reviewed as best as possible given presentation. Pertinent positive or negative as per HPI or otherwise reviewed as negative - Constitutional Vitals: Temp Pulse Resp BP Pulse Ox 97.6 F 75 16 101/61 99 11/07/17 17:09 11/07/17 19:26 11/07/17 17:09 11/07/17 19:26 11/07/17 19:26 Exam: General - AA x 2 Psych - Appropriate affect/speech. No agitation Eyes - ABEBE. Eye lids intact. No scleral icterus Neuro - full exam difficult in the setting of poor mentation from hepatic encephalopathy Heart - Sinus. RRR. S1 and S2 present. No added HS/murmurs appreciated. No elevated JVD appreciated. Lung - Adequate air entry b/l, No crackles/wheezes appreciated GI - Soft, distended. No hepatosplenomegaly/ascites. BS+ - Coleman placed. No CVA/suprapubic tenderness or palpable bladder distension Skin - Intact. No rash/petechiae/ecchymosis. Warm extremities Internal Med - H&P Results - Labs CBC & Chem 7: 11/07/17 17:15 11/07/17 17:15 - Assessment and plan (1) Hepatic encephalopathy Current Visit: Yes Status: Acute Assessment and plan: Suspected to be contributing to mental status with elevated ammonia level. He is no longer taking lactulose. We will restart lactulose 4 times a day to titrate to 3-4 bowel movements daily to prevent buildup of toxins Trend labs (2) Bradycardia Current Visit: Yes Status: Acute Assessment and plan: Uncertain if he has truly symptomatic bradycardia-I do not believe he is symptomatic but will deserve close inpatient monitoring Discussed with the ER doctor to wean off dopamine drip with close monitoring We will keep patient on telemetry overnight with blood pressure monitoring (3) UTI (urinary tract infection) Current Visit: Yes Status: Acute Assessment and plan: Urine cultures pending Empiric Rocephin IV Qualifiers: Urinary tract infection type: acute cystitis Qualified Code(s): N30.00 - Acute cystitis without hematuria (4) Cirrhosis of liver Current Visit: No Status: Chronic Assessment and plan: Portal to be nonalcoholic, Suh cirrhosis . patient denies alcohol He is on home Bumex, potassium sparing diuretics Qualifiers: Hepatic cirrhosis type: other cirrhosis Qualified Code(s): K74.69 - Other cirrhosis of liver (5) Pancytopenia Current Visit: Yes Status: Acute Assessment and plan: Secondary to cirrhosis likely explanation. We will continue to monitor closely (6) Hyperglycemia Current Visit: Yes Status: Acute Assessment and plan: Incidental finding, check A1c, sliding scale overnight. Further management pending inpatient course and further laboratory results (7) Neurogenic bladder Current Visit: Yes Status: Acute Assessment and plan: He straight cath at home He has Coleman placed in ER, we will continue Coleman - Time Spent With Patient Total time spent is greater than 50% in coordination of care (as documented) at patient's floor/unit and/or counseling patient:
[2017-11-07] MEDS ORDERED: tiZANidine 4 MG TABLET PO SCH (21:00)
[2017-11-08] MEDS: Insulin LISPRO 300 UNITS/3 ML VIAL SQ SCH ×5 (00:34→21:46)
[2017-11-08] MEDS: Bumetanide 1 MG TABLET PO SCH ×3 (00:34→17:41)
[2017-11-08] MEDS: EPLERENONE 50 MG PO SCH ×3 (00:35→21:48)
[2017-11-08] MEDS: Gabapentin 100 MG CAPSULE PO SCH ×4 (00:35→21:47)
[2017-11-08 05:21] LABS: Basophils % 0.5 %; Immature Granulocytes % 0.3 % (0-4)
[2017-11-08 05:23] LABS: Eosinophils # 0.1 K/mcL (0.0-0.6); Eosinophils % 1.8 %; Hematocrit 38.8 % (37.5-50.1); Hemoglobin 13.5 g/dL (12.9-16.9); Immature Platelets 3.2 % (1.1-6.1); Lymphocytes # 0.5 K/mcL (0.6-4.6); Lymphocytes % 12.5 %; Mean Corpuscular HGB Conc 34.8 g/dL (31.6-35.5); Mean Corpuscular Hemoglobin 29.2 pg (28.0-33.3); Mean Platelet Volume 11.4 fL (9.4-12.4); Monocytes # 0.2 K/mcL (0.0-1.3); Monocytes % 5.5 %; Red Blood Count 4.62 M/mcL (4.19-5.50); Red Cell Distribution Width 14.5 % (11.5-14.5); Segmented Neutrophils % 79.4 %
[2017-11-08 05:26] LABS: Platelet Count 59 K/mcL (140-400)
[2017-11-08 05:37] LABS: Alanine Aminotransferase 14 Units/L (7-52); Albumin 3.2 g/dL (3.5-5.7); Albumin/Globulin Ratio 0.9 (1.1-2.2); Alkaline Phosphatase 93 Units/L (34-104); Aspartate Amino Transferase 30 Units/L (13-39); BUN/Creatinine Ratio 10 (6-26); Bilirubin,Direct 0.6 mg/dL (0.0-0.2); Bilirubin,Indirect 1.3 mg/dL (0.0-1.2); Bilirubin,Total 1.9 mg/dL (0.3-1.0); Blood Urea Nitrogen 9 mg/dL (6-20); Calcium 8.8 mg/dL (8.6-10.3); Carbon Dioxide 24 mEq/L (23-29); Chloride 107 mEq/L (98-107); Globulin 3.4 g/dL (2.4-3.5); Glucose 141 mg/dL (70-105); Osmolality,Calculated 293 (280-300); Potassium 3.9 mEq/L (3.5-5.1); Sodium 141 mEq/L (136-145); Total Protein 6.6 g/dL (6.4-8.9); eGFR For African Americans > 60 (> 60); eGFR For Non-African Americans > 60 (> 60)
[2017-11-08] MEDS ORDERED: *HR* Metoprolol 5 MG/5 ML VIAL IVP ONE (07:56)
[2017-11-08 08:00] LABS: Estimated Average Glucose 252 mg/dl; Hemoglobin A1C 10.4 %
[2017-11-08] MEDS ORDERED: *HR* Metoprolol 5 MG/5 ML VIAL IVP PRN (08:02)
[2017-11-08] MEDS ORDERED: cefTRIAXone 2,000 MG in Water for inj. (sterile) 20 ML 20 ML IVP SCH (09:00)
[2017-11-08] MEDS ORDERED: Ondansetron 4 MG/2 ML VIAL IVP PRN (09:33)
[2017-11-08] MEDS ORDERED: Lactulose Oral Soln 20 GM/30 ML UDC PO ONE (09:45)
--- NOTE | 2017-11-08 09:51 | Internal Med Progress Note ---
Date of Encounter: 11/08/17 Time of Encounter: 09:49 - Assessment and plan (1) Cirrhosis of liver Current Visit: No Status: Chronic Assessment and plan: Acute Hepatic encephalopathy due to Hyperammonemia secondary to cirrhosis Given additional doses of lactulose Rucker cirrhosis . patient denies alcohol He is on home Bumex, potassium sparing diuretics Qualifiers: Hepatic cirrhosis type: other cirrhosis Qualified Code(s): K74.69 - Other cirrhosis of liver (2) UTI (urinary tract infection) Current Visit: Yes Status: Acute Assessment and plan: UTI with history of Escherichia coli ESBL, , enterococcus, MRSA, VRE Discontinue Rocephin and start ertapenem and nitrofurantoin Urine cultures pending Qualifiers: Urinary tract infection type: acute cystitis Qualified Code(s): N30.00 - Acute cystitis without hematuria (3) Pancytopenia Current Visit: Yes Status: Acute Assessment and plan: Secondary to cirrhosis (4) Bradycardia Current Visit: Yes Status: Acute Assessment and plan: Unclear etiology for symptomatic bradycardia-consider tizanidine as a possible cause Now tachycardic dopamine drip was stopped (5) Hepatic encephalopathy Current Visit: Yes Status: Acute Assessment and plan: Suspected to be contributing to mental status with elevated ammonia level. He was no longer taking lactulose. Continue lactulose 4 times a day to titrate to 3-4 bowel movements daily (6) Neurogenic bladder Current Visit: Yes Status: Acute Assessment and plan: He straight cath at home (7) Hyperglycemia Current Visit: Yes Status: Acute Assessment and plan: Incidental finding, Hemoglobin A1c was 10.4, s liding scale overnight. We will start Levemir once the patient starts eating regularly, is having severe nausea the moment - Time Spent With Patient Total time spent is greater than 50% in coordination of care (as documented) at patient's floor/unit and/or counseling patient: - Subjective Interval history: havign muscle spasms, leg cramps, complained of dysuria, no abdominal pain , has nausea, headache, no fever - Constitutional Vitals: Temp Pulse Resp BP Pulse Ox 98.4 F 126 18 148/81 96 11/08/17 07:56 11/08/17 07:56 11/08/17 07:56 11/08/17 07:56 11/08/17 07:56 General appearance: Present: A&O X 3 - Head Head exam: Present: atraumatic, normocephalic - Eye Eye exam: Present: PERRL, conjuntiva pink, sclera anicteric Pupils: Present: PERRL - Neck Neck exam general surgery: Present: supple, trachea midline. Absent: lymphadenopathy - Respiratory Respiratory exam: Present: decreased breath sounds, CTAB. Absent: accessory muscle use, rales, rhonchi, wheezes - Cardiovascular Cardiovascular exam: Present: RRR, +S1, +S2. Absent: diastolic murmur, gallop, rubs, systolic murmur - GI/Abdominal GI/Abdominal exam: Present: distended, normal bowel sounds, soft, no peritoneal signs. Absent: tenderness - Extremities Exam Extremities exam: Present: warm, radial pulses palpable and symmetrical. Absent : calf tenderness, cyanotic, pedal edema - Neurological Exam Neurological exam: Present: CN II-XII intact, oriented X3. Absent: no focal deficits, pronater drift, facial droop, speech deficit Additional comments: severe chronic leg weakness - Skin Skin exam: Present: dry, intact Internal Medicine: Result - Labs CBC & Chem 7: 11/08/17 04:48 11/08/17 04:48 Labs: Short CBC 11/08/17 Range/Units 04:48 WBC 3.8 L D (4.3-11.1) K/mcL Hgb 13.5 D (12.9-16.9) g/dL Hct 38.8 (37.5-50.1) % Plt Count 59 L (140-400) K/mcL Neutrophils # 3.0 (1.6-8.9) K/mcL BMP 11/08/17 04:48 Sodium 141 Potassium 3.9 Chloride 107 Carbon Dioxide 24 BUN 9 Creatinine 0.89 Glucose 141 H Calcium 8.8 Liver Function 11/08/17 Range/Units 04:48 Total Bilirubin 1.9 H (0.3-1.0) mg/dL Direct Bilirubin 0.6 H (0.0-0.2) mg/dL AST 30 (13-39) Units/L ALT 14 (7-52) Units/L Alkaline Phosphatase 93 (34-104) Units/L Albumin 3.2 L (3.5-5.7) g/dL Consult Discharge Plan - Plan Referrals: Carolyn Bose, LOOM SETTER FOURDRINIER [Primary Care Provider] -
[2017-11-08] MEDS: Ertapenem 1,000 MG in 0.9 % Sodium Chloride Mini Bag 100 ML IVPB SCH (10:12)
[2017-11-08] MEDS: Lactulose Oral Soln 20 GM/30 ML UDC PO SCH ×4 (10:13→21:45)
[2017-11-08] MEDS: Nystatin POWDER 30 GM BOTTLE TP SCH ×2 (10:13→21:48)
[2017-11-08] MEDS ORDERED: diazePAM 5 MG TABLET PO ONE (10:30)
[2017-11-08] MEDS ORDERED: Lactulose 200 GM, Sodium Chloride IRRigation 700 ML RC ONE (10:44)
[2017-11-08] MEDS ORDERED: *HR* Promethazine 25 MG/ML VIAL IVP PRN (11:10)
[2017-11-08] MEDS: Nitrofurantoin (BID) 100 MG CAPSULE PO SCH ×2 (11:17→17:41)
--- NOTE | 2017-11-08 12:27 | Electrocardiograph Report ---
[address] [place], [place] [address] Test Date: 2017-11-07 Pat Name: Percy Lomax Department: 103 Room: 2NE34 Gender: M Impregnating Helper: : 1970 Requested By: Shantanu Dumont Order Number: [id number] Reading MD: Dewayne Pollack Measurements Intervals [place] Rate: 59 P: 33 MT: 178 QRS: -10 QRSD: 114 T: 2 QT: 477 QTc: 476 Interpretive Statements SINUS BRADYCARDIA MODERATE INTRAVENTRICULAR CONDUCTION DELAY MODERATE VOLTAGE CRITERIA FOR LVH, CONSIDER NORMAL VARIANT MODERATE T-WAVE ABNORMALITY, CONSIDER ANTERIOR ISCHEMIA Electronically Signed On 11-08-2017 12:26:08 EDT by Dewayne Pollack
[2017-11-08] MEDS ORDERED: Acetaminophen 325 MG TABLET PO PRN (13:05)
[2017-11-08] MEDS: MethylPREDNISolone 40 MG/ML VIAL IVP SCH (17:40)
[2017-11-08] MEDS: diazePAM 5 MG TABLET PO PRN (17:41)
[2017-11-08] MEDS: *HR* OxyCODONE Immed Rel 5 MG TABLET PO PRN ×2 (17:41→21:47)
[2017-11-09] MEDS: *HR* OxyCODONE Immed Rel 5 MG TABLET PO PRN ×4 (02:37→21:48)
[2017-11-09] MEDS: diazePAM 5 MG TABLET PO PRN ×2 (03:43→15:03)
[2017-11-09 05:41] LABS: Eosinophils % 0.1 %; Hematocrit 39.6 % (37.5-50.1); Red Cell Distribution Width 14.8 % (11.5-14.5)
[2017-11-09 05:44] LABS: Basophils % 0.1 %; Hemoglobin 13.6 g/dL (12.9-16.9); Immature Platelets 3.1 % (1.1-6.1); Lymphocytes # 0.5 K/mcL (0.6-4.6); Lymphocytes % 5.4 %; Mean Corpuscular HGB Conc 34.3 g/dL (31.6-35.5); Mean Corpuscular Hemoglobin 28.5 pg (28.0-33.3); Mean Platelet Volume 10.8 fL (9.4-12.4); Monocytes # 0.5 K/mcL (0.0-1.3); Monocytes % 5.2 %; Red Blood Count 4.77 M/mcL (4.19-5.50); Segmented Neutrophils % 88.2 %
[2017-11-09 05:48] LABS: Neutrophils # 7.9 K/mcL (1.6-8.9); Platelet Count 75 K/mcL (140-400)
[2017-11-09 05:59] LABS: Alanine Aminotransferase 15 Units/L (7-52); Albumin 3.3 g/dL (3.5-5.7); Albumin/Globulin Ratio 0.9 (1.1-2.2); Alkaline Phosphatase 88 Units/L (34-104); Aspartate Amino Transferase 28 Units/L (13-39); BUN/Creatinine Ratio 13 (6-26); Bilirubin,Direct 0.8 mg/dL (0.0-0.2); Bilirubin,Indirect 2.3 mg/dL (0.0-1.2); Bilirubin,Total 3.1 mg/dL (0.3-1.0); Blood Urea Nitrogen 12 mg/dL (6-20); Calcium 8.8 mg/dL (8.6-10.3); Carbon Dioxide 22 mEq/L (23-29); Chloride 104 mEq/L (98-107); Globulin 3.7 g/dL (2.4-3.5); Glucose 276 mg/dL (70-105); Osmolality,Calculated 294 (280-300); Potassium 3.8 mEq/L (3.5-5.1); Sodium 137 mEq/L (136-145); eGFR For African Americans > 60 (> 60); eGFR For Non-African Americans > 60 (> 60)
[2017-11-09] MEDS: Gabapentin 100 MG CAPSULE PO SCH ×3 (08:41→21:48)
[2017-11-09] MEDS: Bumetanide 1 MG TABLET PO SCH ×2 (08:41→17:45)
[2017-11-09] MEDS: Ertapenem 1,000 MG in 0.9 % Sodium Chloride Mini Bag 100 ML IVPB SCH (08:42)
[2017-11-09] MEDS: Nystatin POWDER 30 GM BOTTLE TP SCH ×2 (08:42→22:28)
[2017-11-09] MEDS: MethylPREDNISolone 40 MG/ML VIAL IVP SCH (08:42)
[2017-11-09] MEDS: EPLERENONE 50 MG PO SCH ×2 (08:42→22:31)
[2017-11-09] MEDS: Lactulose Oral Soln 20 GM/30 ML UDC PO SCH ×2 (08:42→22:15)
[2017-11-09] MEDS: Nitrofurantoin (BID) 100 MG CAPSULE PO SCH ×2 (08:43→17:45)
[2017-11-09] MEDS: Insulin LISPRO 300 UNITS/3 ML VIAL SQ SCH ×6 (08:43→21:49)
--- NOTE | 2017-11-09 11:10 | Internal Med Progress Note ---
Date of Encounter: 11/09/17 Time of Encounter: 11:08 - Assessment and plan (1) Cirrhosis of liver Current Visit: No Status: Chronic Assessment and plan: Acute Hepatic encephalopathy due to Hyperammonemia secondary to cirrhosis Continue lactulose Rucker cirrhosis . patient denies alcohol He is on home Bumex, potassium sparing diuretics Qualifiers: Hepatic cirrhosis type: other cirrhosis Qualified Code(s): K74.69 - Other cirrhosis of liver (2) UTI (urinary tract infection) Current Visit: Yes Status: Acute Assessment and plan: UTI with history of Escherichia coli ESBL, , enterococcus, MRSA, VRE Numerous cultures growing Klebsiella ESBL Discontinued Rocephin on 11/08/17 Continue ertapenem and nitrofurantoin day #2 Qualifiers: Urinary tract infection type: acute cystitis Qualified Code(s): N30.00 - Acute cystitis without hematuria (3) Pancytopenia Current Visit: Yes Status: Acute Assessment and plan: Secondary to cirrhosis (4) Bradycardia Current Visit: Yes Status: Acute Assessment and plan: Unclear etiology for symptomatic bradycardia-consider tizanidine as a possible cause Now tachycardic dopamine drip was stopped (5) Hepatic encephalopathy Current Visit: Yes Status: Acute Assessment and plan: Suspected to be contributing to mental status with elevated ammonia level. He was no longer taking lactulose. Continue lactulose 4 times a day to titrate to 3-4 bowel movements daily (6) Neurogenic bladder Current Visit: Yes Status: Acute Assessment and plan: He straight cath at home (7) Hyperglycemia Current Visit: Yes Status: Acute Assessment and plan: Incidental finding, Hemoglobin A1c was 10.4 start Levemir , insulin sliding scale - Time Spent With Patient Total time spent is greater than 50% in coordination of care (as documented) at patient's floor/unit and/or counseling patient: - Subjective Interval history: Having less muscle spasms, leg cramps, complained of dysuria, no abdominal pain , has nausea, headache, no fever, feeling much better. - Constitutional Vitals: Temp Pulse Resp BP Pulse Ox 97.6 F 95 14 169/91 93 11/09/17 07:48 11/09/17 07:47 11/09/17 07:47 11/09/17 07:47 11/09/17 07:47 General appearance: Present: A&O X 3 Exam: - Head Head exam: Present: atraumatic, normocephalic - Eye Eye exam: Present: PERRL, conjuntiva pink, sclera anicteric Pupils: Present: PERRL - Neck Neck exam general surgery: Present: supple, trachea midline. Absent: lymphadenopathy - Respiratory Respiratory exam: Present: decreased breath sounds, CTAB. Absent: accessory muscle use, rales, rhonchi, wheezes - Cardiovascular Cardiovascular exam: Present: RRR, +S1, +S2. Absent: diastolic murmur, gallop, rubs, systolic murmur - GI/Abdominal GI/Abdominal exam: Present: distended, normal bowel sounds, soft, no peritoneal signs. Absent: tenderness - Extremities Exam Extremities exam: Present: warm, radial pulses palpable and symmetrical. Absent : calf tenderness, cyanotic, pedal edema - Neurological Exam Neurological exam: Present: CN II-XII intact, oriented X3. Absent: no focal deficits, pronater drift, facial droop, speech deficit Additional comments: severe chronic leg weakness Internal Medicine: Result - Labs CBC & Chem 7: 11/09/17 04:39 11/09/17 04:39 Labs: Short CBC 11/09/17 Range/Units 04:39 WBC 9.0 D (4.3-11.1) K/mcL Hgb 13.6 (12.9-16.9) g/dL Hct 39.6 (37.5-50.1) % Plt Count 75 L (140-400) K/mcL Neutrophils # 7.9 (1.6-8.9) K/mcL BMP 11/09/17 04:39 Sodium 137 Potassium 3.8 Chloride 104 Carbon Dioxide 22 L BUN 12 Creatinine 0.93 Glucose 276 H Calcium 8.8 Liver Function 11/09/17 Range/Units 04:39 Total Bilirubin 3.1 H (0.3-1.0) mg/dL Direct Bilirubin 0.8 H (0.0-0.2) mg/dL AST 28 (13-39) Units/L ALT 15 (7-52) Units/L Alkaline Phosphatase 88 (34-104) Units/L Albumin 3.3 L (3.5-5.7) g/dL Consult Discharge Plan - Plan Referrals: Carolyn Bose, MODEL ENGINE MECHANIC [Primary Care Provider] -
[2017-11-09] MEDS: Insulin DETEMIR 100 UNIT/ML X5UNITS SQ SCH ×2 (12:29→22:15)
[2017-11-09] MEDS: hydrALAZINE 25 MG TABLET PO SCH (17:59)
[2017-11-10] MEDS: hydrALAZINE 25 MG TABLET PO SCH ×3 (00:43→11:55)
[2017-11-10] MEDS: *HR* OxyCODONE Immed Rel 5 MG TABLET PO PRN (03:22)
[2017-11-10 05:32] LABS: Basophils % 0.6 %; Eosinophils # 0.1 K/mcL (0.0-0.6); Eosinophils % 0.7 %; Hematocrit 36.7 % (37.5-50.1); Hemoglobin 12.9 g/dL (12.9-16.9); Immature Granulocytes % 0.9 % (0-4); Immature Platelets 2.4 % (1.1-6.1); Lymphocytes # 0.8 K/mcL (0.6-4.6); Lymphocytes % 12.3 %; Mean Corpuscular HGB Conc 35.1 g/dL (31.6-35.5); Mean Corpuscular Hemoglobin 28.9 pg (28.0-33.3); Mean Corpuscular Volume 82.3 fL (83.0-100.0); Mean Platelet Volume 10.2 fL (9.4-12.4); Monocytes # 0.5 K/mcL (0.0-1.3); Monocytes % 7.8 %; Neutrophils # 5.3 K/mcL (1.6-8.9); Red Blood Count 4.46 M/mcL (4.19-5.50); Segmented Neutrophils % 77.7 %
[2017-11-10 05:34] LABS: Platelet Count 62 K/mcL (140-400)
[2017-11-10 05:39] LABS: Alanine Aminotransferase 13 Units/L (7-52); Albumin 3.2 g/dL (3.5-5.7); Albumin/Globulin Ratio 0.9 (1.1-2.2); Alkaline Phosphatase 80 Units/L (34-104); Aspartate Amino Transferase 22 Units/L (13-39); BUN/Creatinine Ratio 16 (6-26); Bilirubin,Direct 0.6 mg/dL (0.0-0.2); Bilirubin,Indirect 1.8 mg/dL (0.0-1.2); Bilirubin,Total 2.4 mg/dL (0.3-1.0); Blood Urea Nitrogen 12 mg/dL (6-20); Calcium 8.5 mg/dL (8.6-10.3); Carbon Dioxide 25 mEq/L (23-29); Chloride 104 mEq/L (98-107); Globulin 3.4 g/dL (2.4-3.5); Glucose 262 mg/dL (70-105); Osmolality,Calculated 291 (280-300); Potassium 3.7 mEq/L (3.5-5.1); Sodium 136 mEq/L (136-145); Total Protein 6.6 g/dL (6.4-8.9); eGFR For African Americans > 60 (> 60); eGFR For Non-African Americans > 60 (> 60)
[2017-11-10 07:13] VITALS: BP 139/71
[2017-11-10] MEDS: Insulin LISPRO 300 UNITS/3 ML VIAL SQ SCH ×4 (08:00→11:59)
--- NOTE | 2017-11-10 08:13 | Discharge Summary ---
- NOTES TO OUTPATIENT PROVIDER Notes to Outpatient Provider: Follow-up with primary care physician within the next 7 days. Continue taking nitrofurantoin for 7 days. Stop Tizanidine, can use diazepam for spasms. Continue taking lactulose. Start Levemir 10 units at night. Humalog insulin sliding scale three times a day: 3 units if glucose 100 -149. 5 units if 150-199. 7 units if 200-249. 9 units if 250-299. 11 units if 300-349. 13 units if 350-399. 15 units if more than 400 Date of Encounter: 11/10/17 Time of Encounter: 08:11 - Discharge Diagnosis (1) Cirrhosis of liver Priority: Primary Status: Chronic Assessment and Plan: Acute Hepatic encephalopathy due to Hyperammonemia secondary to cirrhosis Qualifiers: Hepatic cirrhosis type: other cirrhosis Qualified Code(s): K74.69 - Other cirrhosis of liver (2) UTI (urinary tract infection) Priority: Primary Status: Acute Assessment and Plan: Culture growing Klebsiella ESBL Discontinued Rocephin on 11/08/17 Continue nitrofurantoin Qualifiers: Urinary tract infection type: acute cystitis Qualified Code(s): N30.00 - Acute cystitis without hematuria (3) Pancytopenia Priority: Secondary Status: Acute Assessment and Plan: Secondary to cirrhosis (4) Bradycardia Priority: Secondary Status: Acute Assessment and Plan: Unclear etiology for symptomatic bradycardia-consider tizanidine as a possible cause (5) Hepatic encephalopathy Priority: Primary Status: Acute (6) Neurogenic bladder Priority: Secondary Status: Acute Assessment and Plan: Straight catheter at home (7) Diabetes Priority: Secondary Status: Acute Assessment and Plan: Hemoglobin A1c was 10.4 Qualifiers: Diabetes mellitus type: type 2 Diabetes mellitus long-term insulin use: with long-term use Diabetes mellitus complication status: without complication Qualified Code(s): E11.9 - Type 2 diabetes mellitus without complications; Z79.4 - halfway (current) use of insulin; Z79.4 - halfway ( current) use of insulin; Z79.4 - terminal carman (current) use of insulin; Z79.4 - halfway (current) use of insulin Hospital course: Mr. Lomax is a 47 year old male with a past medical history of of nonalcoholic, SUH cirrhosis, recurrent UTI with history of Escherichia coli ESBL, , enterococcus, MRSA, VRE.. He lives alone at home and uses a walker/ wheel chair. Apparently 2 years ago he had spinal surgery for a back infection where it was reported that his bones were scraped and removed infection. Unfortunately this surgery that to paralysis from the neck down and subsequently underwent a prolonged rehabilitation. He is now wheelchair bound with intermittent use of a walker. He also has a chronic neurogenic bladder where he straight catheter himself daily. Home health nurse visited him and found him to be incoherent, confused compared to his baseline. EMS was called and he was subsequently found to be bradycardic in the field. Per ACS protocol he was started on dopamine prior to ED admission. In the ED were able to wean the dopamine off for heart rate in the 50s to 60s and intact blood pressure with no evidence of instability on initial monitoring. Objectively he was found to have an elevated ammonia level (106) along with urine suspicious for UTI in the setting of neurogenic bladder with intermittent straight catheterization. Tizanidine was discontinued as it can cause bradycardia. Urine culture growe Klebsiella ESBL Hemoglobin A1c was 10.4. Was started on Levemir and Humalog. Discontinued Rocephin on 11/08/17 Continued ertapenem for 3 days and nitrofurantoin will be continued for 7 days more. Stable to be discharged - Time Spent with Patient Total time spent providing and/or coordinating discharge services: Greater than 30 minutes (40 min) - Discharge Medications Prescriptions: diazePAM [Valium] 5 mg PO Q6H PRN 7 Days #28 tablet PRN Reason: Spasms Insulin DETEMIR [Levemir] 10 unit SQ HS 30 Days #1 [id number] Insulin LISPRO [HumaLOG] 3 units SQ TIDAC 30 Days #2 vial Lactulose 20 gm PO BID 30 Days udc Nitrofurantoin (BID) [Macrobid] 100 mg PO BIDWM #14 capsule Home Medications: Gabapentin [Neurontin] 200 mg PO TID 12/22/15 [History] Potassium Chloride [K-Tab ER] 20 meq PO DAILY 12/22/15 [History] TraZODone 50 mg PO HS PRN 12/22/15 [History] Omeprazole [PriLOSEC] 20 mg PO BID 04/17/16 [History] Eplerenone [Inspra] 50 mg PO BID 02/24/17 [History] Escitalopram [Lexapro] 10 mg PO DAILY 02/24/17 [History] Furosemide [Lasix] 40 mg PO DAILY 02/24/17 [History] Bumetanide [Bumex] 1 mg PO BID 10/24/17 [History] Oxybutynin Chloride [Ditropan Xl] 5 mg PO TID 10/24/17 [History] Insulin DETEMIR [Levemir] 10 unit SQ HS 30 Days #1 [id number] 11/10/17 [Rx] Insulin LISPRO [HumaLOG] 3 units SQ TIDAC 30 Days #2 vial 11/10/17 [Rx] Lactulose 20 gm PO BID 30 Days udc 11/10/17 [Rx] Nitrofurantoin (BID) [Macrobid] 100 mg PO BIDWM #14 capsule 11/10/17 [Rx] diazePAM [Valium] 5 mg PO Q6H PRN 7 Days #28 tablet 11/10/17 [Rx] Allergies/Adverse Reactions: 3 Allergy/AdvReac Type Severity Reaction Status Date / Time milk Allergy Swelling Verified 11/09/17 11:18 of Lip/Tongue/Throat Milk Containing Products Allergy Swelling Verified 11/09/17 11:18 of Lip/Tongue/Throat Date of admission: 11/07/17 20:03 Primary care physician: Carolyn Bose CNP Consults: 11/07/17 22:15 Consult to Board Winder [CONS] Routine Reason for SW Consult: patient home alone in poor condition, unable to fully care for self - Constitutional Vitals: Temp Pulse Resp BP Pulse Ox 98.6 F 95 18 139/71 95 11/10/17 07:12 11/10/17 07:12 11/10/17 07:12 11/10/17 07:12 11/10/17 07:12 General appearance: Present: A&O X 3 Exam: - Head Head exam: Present: atraumatic, normocephalic - Eye Eye exam: Present: PERRL, conjuntiva pink, sclera anicteric Pupils: Present: PERRL - Neck Neck exam general surgery: Present: supple, trachea midline. Absent: lymphadenopathy - Respiratory Respiratory exam: Present: decreased breath sounds, CTAB. Absent: accessory muscle use, rales, rhonchi, wheezes - Cardiovascular Cardiovascular exam: Present: RRR, +S1, +S2. Absent: diastolic murmur, gallop, rubs, systolic murmur - GI/Abdominal GI/Abdominal exam: Present: distended, normal bowel sounds, soft, no peritoneal signs. Absent: tenderness - Extremities Exam Extremities exam: Present: warm, radial pulses palpable and symmetrical. Absent : calf tenderness, cyanotic, pedal edema - Neurological Exam Neurological exam: Present: CN II-XII intact, oriented X3. Absent: no focal deficits, pronater drift, facial droop, speech deficit Additional comments: severe chronic leg weakness - Patient Status Disposition: Home Health Service Condition: Fair Overall status at discharge: patient is back to baseline - Discharge Instructions Follow Up With: Carolyn Bose, RANCH MANAGER [Primary Care Provider] - 11/23/17 11:00 am - Diet and Activity Activity: increase activity as tolerated Diet: diabetic diet, low fat, low cholesterol - VTE Documentation of Mechanical Device: Graduated compression elastic hosiery
--- NOTE | 2017-11-10 08:37 | Physician Discharge Referral ---
Home Health/Hosp Referral Info Transfer to: Home Health Provider in Charge Post Discharge: PCP - Diagnosis (1) Cirrhosis of liver Status: Chronic (2) UTI (urinary tract infection) Status: Acute (3) Pancytopenia Status: Acute (4) Bradycardia Status: Acute (5) Hepatic encephalopathy Status: Acute (6) Neurogenic bladder Status: Acute (7) Diabetes Status: Acute - Respiratory Orders Smoking Cessation: Smoking cessation has been advised. For more information, call the [place] Tobacco Quit Line at 6-419-HNNG-NOW. - Diet/Nutrition Diet/Nutrition: List: Diabetic diet - Services Needed Following services are medically necessary services: Home Health Aide, Physical Therapy, Occupational Therapy Home Care Orders: Follow-up with primary care physician within the next 7 days. Continue taking nitrofurantoin for 7 days. Stop Tizanidine, can use diazepam for spasms. Continue taking lactulose. Start Levemir 10 units at night. Humalog insulin sliding scale three times a day: 3 units if glucose 100-149 5 units if 150-199 7 units if 200-249 9 units if 250-299 11 units if 300-349 13 units if 350-399 15 units if more than 400 - Transfer Medications Prescriptions: diazePAM [Valium] 5 mg PO Q6H PRN 7 Days #28 tablet PRN Reason: Spasms Insulin DETEMIR [Levemir] 10 unit SQ HS 30 Days #1 [id number] Insulin LISPRO [HumaLOG] 3 units SQ TIDAC 30 Days #2 vial Lactulose 20 gm PO BID 30 Days udc Nitrofurantoin (BID) [Macrobid] 100 mg PO BIDWM #14 capsule Home Medications: Gabapentin [Neurontin] 200 mg PO TID 12/22/15 [History] Potassium Chloride [K-Tab ER] 20 meq PO DAILY 12/22/15 [History] TraZODone 50 mg PO HS PRN 12/22/15 [History] Omeprazole [PriLOSEC] 20 mg PO BID 04/17/16 [History] Eplerenone [Inspra] 50 mg PO BID 02/24/17 [History] Escitalopram [Lexapro] 10 mg PO DAILY 02/24/17 [History] Furosemide [Lasix] 40 mg PO DAILY 02/24/17 [History] Bumetanide [Bumex] 1 mg PO BID 10/24/17 [History] Oxybutynin Chloride [Ditropan Xl] 5 mg PO TID 10/24/17 [History] Insulin DETEMIR [Levemir] 10 unit SQ HS 30 Days #1 [id number] 11/10/17 [Rx] Insulin LISPRO [HumaLOG] 3 units SQ TIDAC 30 Days #2 vial 11/10/17 [Rx] Lactulose 20 gm PO BID 30 Days udc 11/10/17 [Rx] Nitrofurantoin (BID) [Macrobid] 100 mg PO BIDWM #14 capsule 11/10/17 [Rx] diazePAM [Valium] 5 mg PO Q6H PRN 7 Days #28 tablet 11/10/17 [Rx] Allergies/Adverse Reactions: 3 Allergy/AdvReac Type Severity Reaction Status Date / Time milk Allergy Swelling Verified 11/09/17 11:18 of Lip/Tongue/Throat Milk Containing Products Allergy Swelling Verified 11/09/17 11:18 of Lip/Tongue/Throat Certification: Further, I certify that my clinical findings support that this patient is homebound (i.e. absences from home require considerable and taxing effort and are for medical reasons or amish services or infrequently or short duration when for other reasons) because: Homebound Reason: Patient requires assistance of a person or device to safely leave home Attestation: My signature below is to certify that this patient is under my care and that I, or nurse practitioner, or a physician's roofer assistant working with me, has a face-to -face encounter with this patient.
[2017-11-10] MEDS: Ertapenem 1,000 MG in 0.9 % Sodium Chloride Mini Bag 100 ML IVPB SCH (11:53)
[2017-11-10] MEDS: Bumetanide 1 MG TABLET PO SCH (11:55)
[2017-11-10] MEDS: Gabapentin 100 MG CAPSULE PO SCH (11:55)
[2017-11-10] MEDS: Nitrofurantoin (BID) 100 MG CAPSULE PO SCH (11:55)
[2017-11-10] MEDS: MethylPREDNISolone 40 MG/ML VIAL IVP SCH (11:55)
[2017-11-10] MEDS: Insulin DETEMIR 100 UNIT/ML X5UNITS SQ SCH (11:56)
[2017-11-10] MEDS: Lactulose Oral Soln 20 GM/30 ML UDC PO SCH (11:59)
[2017-11-10] MEDS: EPLERENONE 50 MG PO SCH (12:00)
[2017-11-10] MEDS: Nystatin POWDER 30 GM BOTTLE TP SCH (12:00)
== END 2017-11-10 16:35 | disposition home health service (06) ==
LOC: EMEROO 17:07 → 2NENU 17:07
PROVIDERS: ADMIT Internal Medicine; ATTEND Internal Medicine